=== PATIENT | female | born 1960 | race Caucasian/White ===

== ENCOUNTER 2019-09-13 16:25 | Outpatient (RCR) | payer OTHER, SELFPAY ==
[2019-09-13 17:35] LABS: Basophils Percent Auto 0.4 % (0.2-1.2); Eosinophils Absolute Auto 0.1 K/mm3 (0-0.3); Eosinophils Percent Auto 1.5 % (0-4.4); Hematocrit 42.4 % (37.0-47.0); Hemoglobin 13.5 g/dL (12.0-15.0); Immature Granulocyte Absolute 0.03 K/mm3 (0.00-0.031); Immature Granulocyte Percent A 0.3 % (0-0.5); Lymphocytes Absolute Auto 3.41 K/mm3 (0.9-3.2); Lymphocytes Percent Auto 35.3 % (18.3-44.2); Mean Corpuscular HGB Conc 31.8 g/dl (32-36); Mean Corpuscular Hemoglobin 30.9 pg (26-34); Mean Platelet Volume 9.6 fl (7.4-10.4); Monocytes Absolute Auto 0.6 K/mm3 (0.1-0.6); Monocytes Percent Auto 5.8 % (2.6-8.5); Neutrophils Absolute Auto 5.5 K/mm3 (1.3-6.7); Neutrophils Percent Auto 56.7 % (45.5-73.1); Platelet Count Result 324 k/mm3 (150-375); Red Blood Count 4.37 M/mm3 (4.2-5.4); Red Cell Distribution Width 13.3 % (11.5-14.5); White Blood Count 9.7 K/mm3 (4.5-10.0)
== END 2019-12-12 23:59 | disposition home or self-care (01) ==
LOC: ANHLAB 16:25
PROVIDERS: PCP Family Medicine
DX: K50.919 Crohn's disease, unspecified, with unspecified complications (principal); Z79.899 Other long term (current) drug therapy
CPT/HCPCS: 36415; 85025

== ENCOUNTER 2019-12-22 07:15 | Outpatient (RCR) | payer OTHER, SELFPAY ==
[2019-12-22 07:59] LABS: Basophils Absolute Auto 0.1 K/mm3 (0.0-0.1); Basophils Percent Auto 0.6 % (0.2-1.2); Eosinophils Absolute Auto 0.2 K/mm3 (0-0.3); Eosinophils Percent Auto 1.9 % (0-4.4); Hematocrit 41.5 % (37.0-47.0); Hemoglobin 13.3 g/dL (12.0-15.0); Immature Granulocyte Absolute 0.04 K/mm3 (0.00-0.031); Immature Granulocyte Percent A 0.5 % (0-0.5); Lymphocytes Percent Auto 29.8 % (18.3-44.2); Mean Corpuscular Hemoglobin 30.9 pg (26-34); Mean Corpuscular Volume 96.5 fl (80-100); Mean Platelet Volume 9.5 fl (7.4-10.4); Monocytes Absolute Auto 0.5 K/mm3 (0.1-0.6); Neutrophils Absolute Auto 5.4 K/mm3 (1.3-6.7); Neutrophils Percent Auto 61.2 % (45.5-73.1); Platelet Count Result 315 k/mm3 (150-375); Red Cell Distribution Width 12.9 % (11.5-14.5); White Blood Count 8.7 K/mm3 (4.5-10.0)
[2019-12-22 08:16] LABS: Blood Urea Nitrogen 11 mg/dL (7-17); Carbon Dioxide 26 mmol/L (22-30); Chloride 107 mmol/L (98-107); Cholesterol 167 mg/dL (0-200); Estimated Glomerular Filt Rate > 60; Glucose 93 mg/dL (65-105); HDL Direct 49 mg/dL; Potassium 4.5 mmol/L (3.4-5.0); Sodium 139 mmol/L (137-145); Triglycerides 83 mg/dL (<150)
[2019-12-22 08:17] LABS: Alanine Aminotransferase 18 U/L (4-35); Albumin Level 4.2 g/dL (3.5-5.1); Alkaline Phosphatase 70 U/L (38-126); Aspartate Amino Transferase 33 U/L (14-36); Bilirubin,Total 0.5 mg/dL (0.2-1.3)
[2019-12-22 08:27] LABS: LDL Cholesterol Direct 93 mg/dL
[2019-12-22 08:46] LABS: Thyroid Stimulating Hormone 0.981 uIU/mL (0.465-4.680)
== END 2020-03-21 23:59 | disposition home or self-care (01) ==
LOC: ANHLAB 07:15
PROVIDERS: Nurse Practitioner Family; PCP Family Medicine
DX: K50.919 Crohn's disease, unspecified, with unspecified complications (principal); Z79.899 Other long term (current) drug therapy; Z13.220 Encounter for screening for lipoid disorders; Z13.29 Encounter for screening for other suspected endocrine disorder
CPT/HCPCS: 36415; 80048; 80061; 80076; 84443; 85025

== ENCOUNTER 2020-03-24 14:30 | Outpatient (CLI) | payer OTHER, SELFPAY ==
[2020-03-24 15:15] LABS: Basophils Percent Auto 0.4 % (0.2-1.2); Eosinophils Absolute Auto 0.2 K/mm3 (0-0.3); Eosinophils Percent Auto 2.3 % (0-4.4); Hematocrit 39.2 % (37.0-47.0); Immature Granulocyte Absolute 0.03 K/mm3 (0.00-0.031); Immature Granulocyte Percent A 0.3 % (0-0.5); Lymphocytes Absolute Auto 2.96 K/mm3 (0.9-3.2); Lymphocytes Percent Auto 29.3 % (18.3-44.2); Mean Corpuscular HGB Conc 33.2 g/dl (32-36); Mean Corpuscular Hemoglobin 31.6 pg (26-34); Mean Corpuscular Volume 95.4 fl (80-100); Mean Platelet Volume 9.7 fl (7.4-10.4); Monocytes Absolute Auto 0.5 K/mm3 (0.1-0.6); Monocytes Percent Auto 5.1 % (2.6-8.5); Neutrophils Absolute Auto 6.3 K/mm3 (1.3-6.7); Neutrophils Percent Auto 62.6 % (45.5-73.1); Platelet Count Result 296 k/mm3 (150-375); Red Blood Count 4.11 M/mm3 (4.2-5.4); Red Cell Distribution Width 12.4 % (11.5-14.5); White Blood Count 10.1 K/mm3 (4.5-10.0)
[2020-03-24 15:27] LABS: Anion Gap 10.8 mmol/L (7-16); Blood Urea Nitrogen 14 mg/dL (7-17); Calcium 8.6 mg/dL (8.4-10.2); Carbon Dioxide 24 mmol/L (22-30); Chloride 107 mmol/L (98-107); Estimated Glomerular Filt Rate > 60; Glucose 114 mg/dL (65-105); Potassium 3.8 mmol/L (3.4-5.0); Sodium 138 mmol/L (137-145)
== END 2020-03-24 14:31 | disposition home or self-care (01) ==
PROVIDERS: PCP Family Medicine; Visit Provider Nurse Practitioner Family
DX: R10.2 Pelvic and perineal pain (principal); N28.9 Disorder of kidney and ureter, unspecified
CPT/HCPCS: 36415; 80048; 85025

== ENCOUNTER 2020-03-24 14:33 | Outpatient (RCR) | payer OTHER, SELFPAY ==
[2020-03-24 15:26] LABS: Alanine Aminotransferase 17 U/L (4-35); Albumin Level 3.9 g/dL (3.5-5.1); Alkaline Phosphatase 73 U/L (38-126); Aspartate Amino Transferase 29 U/L (14-36); Bilirubin,Total 0.2 mg/dL (0.2-1.3)
== END 2020-06-22 23:59 | disposition home or self-care (01) ==
LOC: ANHLAB 14:33
PROVIDERS: PCP Family Medicine
DX: K50.919 Crohn's disease, unspecified, with unspecified complications (principal); Z79.899 Other long term (current) drug therapy
CPT/HCPCS: 36415; 80076

== ENCOUNTER 2020-05-31 14:40 | Outpatient (CLI) | payer OTHER, SELFPAY | END 2020-05-31 14:41 | disposition home or self-care (01) | LOC: ANHAUDIO 14:42 | PROVIDERS: PCP Family Medicine | DX: H65.23 Chronic serous otitis media, bilateral (principal) | CPT/HCPCS: 92552; 92556; 92567 ==

== ENCOUNTER 2020-06-17 07:42 | Outpatient (RCR) | payer OTHER, SELFPAY ==
[2020-06-17 08:26] LABS: Alanine Aminotransferase 35 U/L (4-35); Albumin Level 4.3 g/dL (3.5-5.1); Alkaline Phosphatase 74 U/L (38-126); Aspartate Amino Transferase 42 U/L (14-36); Bilirubin,Total 0.3 mg/dL (0.2-1.3)
[2020-06-17 08:35] LABS: Basophils Absolute Auto 0.1 K/mm3 (0.0-0.1); Basophils Percent Auto 0.7 % (0.2-1.2); Eosinophils Absolute Auto 0.2 K/mm3 (0-0.3); Eosinophils Percent Auto 2.3 % (0-4.4); Hematocrit 42.7 % (37.0-47.0); Hemoglobin 13.8 g/dL (12.0-15.0); Immature Granulocyte Absolute 0.04 K/mm3 (0.00-0.031); Immature Granulocyte Percent A 0.5 % (0-0.5); Lymphocytes Absolute Auto 2.92 K/mm3 (0.9-3.2); Lymphocytes Percent Auto 33.4 % (18.3-44.2); Mean Corpuscular HGB Conc 32.3 g/dl (32-36); Mean Corpuscular Hemoglobin 31.3 pg (26-34); Mean Corpuscular Volume 96.8 fl (80-100); Mean Platelet Volume 9.6 fl (7.4-10.4); Monocytes Absolute Auto 0.6 K/mm3 (0.1-0.6); Monocytes Percent Auto 6.4 % (2.6-8.5); Neutrophils Percent Auto 56.7 % (45.5-73.1); Platelet Count Result 330 k/mm3 (150-375); Red Blood Count 4.41 M/mm3 (4.2-5.4); Red Cell Distribution Width 12.6 % (11.5-14.5); White Blood Count 8.8 K/mm3 (4.5-10.0)
== END 2020-09-15 23:59 | disposition home or self-care (01) ==
LOC: ANHLAB 07:42
PROVIDERS: PCP Family Medicine
DX: K50.919 Crohn's disease, unspecified, with unspecified complications (principal); Z79.899 Other long term (current) drug therapy
CPT/HCPCS: 36415; 80076; 85025

== ENCOUNTER 2020-11-03 09:49 | Outpatient (CLI) | payer OTHER, SELFPAY | END 2020-11-03 09:50 | disposition home or self-care (01) | LOC: ANHCOVIDVC 09:49 | PROVIDERS: PCP Family Medicine | DX: Z23 Encounter for immunization (principal) | CPT/HCPCS: 0001A; 91300 ==

== ENCOUNTER 2020-11-24 09:54 | Outpatient (CLI) | payer OTHER, SELFPAY | END 2020-11-24 09:55 | disposition home or self-care (01) | LOC: ANHCOVIDVC 09:54 | PROVIDERS: PCP Family Medicine | DX: Z23 Encounter for immunization (principal) | CPT/HCPCS: 0002A; 91300 ==

== ENCOUNTER 2020-12-15 09:47 | Outpatient (RCR) | payer OTHER, SELFPAY ==
[2020-09-16 11:05] LABS: Basophils Absolute Auto 0.1 K/mm3 (0.0-0.1); Basophils Percent Auto 0.5 % (0.2-1.2); Eosinophils Absolute Auto 0.2 K/mm3 (0-0.3); Eosinophils Percent Auto 1.5 % (0-4.4); Hematocrit 40.7 % (37.0-47.0); Hemoglobin 13.2 g/dL (12.0-15.0); Immature Granulocyte Absolute 0.05 K/mm3 (0.00-0.031); Immature Granulocyte Percent A 0.4 % (0-0.5); Lymphocytes Absolute Auto 2.58 K/mm3 (0.9-3.2); Lymphocytes Percent Auto 22.3 % (18.3-44.2); Mean Corpuscular HGB Conc 32.4 g/dl (32-36); Mean Corpuscular Hemoglobin 30.6 pg (26-34); Mean Corpuscular Volume 94.4 fl (80-100); Mean Platelet Volume 9.2 fl (7.4-10.4); Monocytes Absolute Auto 0.6 K/mm3 (0.1-0.6); Monocytes Percent Auto 4.8 % (2.6-8.5); Neutrophils Absolute Auto 8.2 K/mm3 (1.3-6.7); Neutrophils Percent Auto 70.5 % (45.5-73.1); Platelet Count Result 330 k/mm3 (150-375); Red Blood Count 4.31 M/mm3 (4.2-5.4); Red Cell Distribution Width 12.5 % (11.5-14.5); White Blood Count 11.6 K/mm3 (4.5-10.0)
[2020-12-15 10:28] LABS: Basophils Absolute Auto 0.1 K/mm3 (0.0-0.1); Basophils Percent Auto 0.5 % (0.2-1.2); Eosinophils Absolute Auto 0.1 K/mm3 (0-0.3); Eosinophils Percent Auto 1.3 % (0-4.4); Hematocrit 41.6 % (37.0-47.0); Hemoglobin 13.9 g/dL (12.0-15.0); Immature Granulocyte Absolute 0.05 K/mm3 (0.00-0.031); Immature Granulocyte Percent A 0.5 % (0-0.5); Lymphocytes Absolute Auto 2.47 K/mm3 (0.9-3.2); Lymphocytes Percent Auto 23.7 % (18.3-44.2); Mean Corpuscular HGB Conc 33.4 g/dl (32-36); Mean Corpuscular Hemoglobin 31.6 pg (26-34); Mean Corpuscular Volume 94.5 fl (80-100); Mean Platelet Volume 9.3 fl (7.4-10.4); Monocytes Absolute Auto 0.6 K/mm3 (0.1-0.6); Monocytes Percent Auto 5.3 % (2.6-8.5); Neutrophils Absolute Auto 7.2 K/mm3 (1.3-6.7); Neutrophils Percent Auto 68.7 % (45.5-73.1); Platelet Count Result 306 k/mm3 (150-375); Red Cell Distribution Width 12.4 % (11.5-14.5); White Blood Count 10.4 K/mm3 (4.5-10.0)
== END 2020-12-15 23:59 | disposition home or self-care (01) ==
LOC: ANHLAB 09:47
PROVIDERS: PCP Family Medicine
DX: K50.919 Crohn's disease, unspecified, with unspecified complications (principal); Z79.899 Other long term (current) drug therapy
CPT/HCPCS: 36415; 85025

== ENCOUNTER 2020-12-25 08:21 | Outpatient (CLI) | payer OTHER, SELFPAY ==
[2020-12-28 00:11] LABS: NIL 0.06 IU/mL; Quantiferon TB Plus, 1T NEGATIVE (NEGATIVE); TB2-NIL 0.02 IU/mL
== END 2020-12-25 08:22 | disposition home or self-care (01) ==
PROVIDERS: PCP Family Medicine
DX: K50.919 Crohn's disease, unspecified, with unspecified complications (principal)
CPT/HCPCS: 36415; 86480

== ENCOUNTER 2021-01-26 06:58 | Outpatient (CLI) | payer OTHER, SELFPAY ==
[2021-01-26 07:34] LABS: Hematocrit 39.6 % (37.0-47.0); Mean Corpuscular HGB Conc 32.8 g/dl (32-36); Mean Corpuscular Hemoglobin 31.1 pg (26-34); Mean Corpuscular Volume 94.7 fl (80-100); Mean Platelet Volume 9.3 fl (7.4-10.4); Platelet Count Result 306 k/mm3 (150-375); Red Blood Count 4.18 M/mm3 (4.2-5.4); Red Cell Distribution Width 12.8 % (11.5-14.5); White Blood Count 9.6 K/mm3 (4.5-10.0)
[2021-01-26 07:45] LABS: Cholesterol 177 mg/dL (0-200); HDL Direct 52 mg/dL; Triglycerides 77 mg/dL (<150)
[2021-01-26 07:56] LABS: LDL Cholesterol Direct 89 mg/dL
[2021-01-26 08:15] LABS: Thyroid Stimulating Hormone 0.868 uIU/mL (0.465-4.680)
[2021-01-26 08:47] LABS: Iron 105 ug/dL (37-170); Percent Iron Saturation 32 % (20-50)
[2021-01-26 09:26] LABS: Vitamin D 25 Hydroxy 37.6 ng/mL
== END 2021-01-26 06:59 | disposition home or self-care (01) ==
PROVIDERS: PCP Family Medicine; Visit Provider Nurse Practitioner Family
DX: Z13.220 Encounter for screening for lipoid disorders (principal); R53.83 Other fatigue; F32.9 Major depressive disorder, single episode, unspecified; E55.9 Vitamin D deficiency, unspecified
CPT/HCPCS: 36415; 80061; 82306; 83540; 83550; 84443; 85027

== ENCOUNTER 2021-03-10 07:24 | Outpatient (RCR) | payer OTHER, SELFPAY ==
[2021-03-10 08:07] LABS: Basophils Absolute Auto 0.1 K/mm3 (0.0-0.1); Basophils Percent Auto 0.5 % (0.2-1.2); Eosinophils Absolute Auto 0.2 K/mm3 (0-0.3); Eosinophils Percent Auto 2.2 % (0-4.4); Hematocrit 40.5 % (37.0-47.0); Hemoglobin 13.1 g/dL (12.0-15.0); Immature Granulocyte Absolute 0.04 K/mm3 (0.00-0.031); Immature Granulocyte Percent A 0.4 % (0-0.5); Lymphocytes Absolute Auto 2.28 K/mm3 (0.9-3.2); Lymphocytes Percent Auto 24.1 % (18.3-44.2); Mean Corpuscular HGB Conc 32.3 g/dl (32-36); Mean Corpuscular Hemoglobin 30.8 pg (26-34); Mean Corpuscular Volume 95.3 fl (80-100); Mean Platelet Volume 9.3 fl (7.4-10.4); Monocytes Absolute Auto 0.5 K/mm3 (0.1-0.6); Monocytes Percent Auto 5.3 % (2.6-8.5); Neutrophils Absolute Auto 6.4 K/mm3 (1.3-6.7); Neutrophils Percent Auto 67.5 % (45.5-73.1); Platelet Count Result 301 k/mm3 (150-375); Red Blood Count 4.25 M/mm3 (4.2-5.4); Red Cell Distribution Width 12.5 % (11.5-14.5); White Blood Count 9.5 K/mm3 (4.5-10.0)
[2021-03-10 08:56] LABS: Alanine Aminotransferase 24 U/L (4-35); Albumin Level 4.2 g/dL (3.5-5.1); Alkaline Phosphatase 59 U/L (38-126); Aspartate Amino Transferase 54 U/L (14-36); Bilirubin,Total 0.6 mg/dL (0.2-1.3)
== END 2021-06-08 23:59 | disposition home or self-care (01) ==
LOC: ANHLAB 07:24
PROVIDERS: PCP Family Medicine
DX: Z51.81 Encounter for therapeutic drug level monitoring (principal); K50.019 Crohn's disease of small intestine with unspecified complications; Z79.899 Other long term (current) drug therapy
CPT/HCPCS: 36415; 80076; 85025

== ENCOUNTER 2021-03-10 07:32 | Outpatient (CLI) | payer OTHER, SELFPAY ==
[2021-03-10 08:49] LABS: Thyroid Stimulating Hormone 0.809 uIU/mL (0.465-4.680)
== END 2021-03-10 07:33 | disposition home or self-care (01) ==
PROVIDERS: PCP Family Medicine
DX: K50.019 Crohn's disease of small intestine with unspecified complications (principal); Z79.899 Other long term (current) drug therapy
CPT/HCPCS: 36415; 82607; 84443; 86480

== ENCOUNTER 2021-06-18 17:08 | Outpatient (RCR) | payer OTHER, SELFPAY ==
[2021-06-18 17:28] LABS: Basophils Percent Auto 0.3 % (0.2-1.2); Eosinophils Absolute Auto 0.2 K/mm3 (0-0.3); Eosinophils Percent Auto 1.5 % (0-4.4); Hematocrit 36.1 % (37.0-47.0); Hemoglobin 11.9 g/dL (12.0-15.0); Immature Granulocyte Absolute 0.03 K/mm3 (0.00-0.031); Immature Granulocyte Percent A 0.3 % (0-0.5); Lymphocytes Absolute Auto 3.66 K/mm3 (0.9-3.2); Lymphocytes Percent Auto 37.2 % (18.3-44.2); Mean Corpuscular Hemoglobin 31.2 pg (26-34); Mean Corpuscular Volume 94.8 fl (80-100); Mean Platelet Volume 9.2 fl (7.4-10.4); Monocytes Absolute Auto 0.5 K/mm3 (0.1-0.6); Monocytes Percent Auto 5.2 % (2.6-8.5); Neutrophils Absolute Auto 5.5 K/mm3 (1.3-6.7); Neutrophils Percent Auto 55.5 % (45.5-73.1); Platelet Count Result 270 k/mm3 (150-375); Red Blood Count 3.81 M/mm3 (4.2-5.4); Red Cell Distribution Width 12.7 % (11.5-14.5); White Blood Count 9.8 K/mm3 (4.5-10.0)
[2021-06-18 17:41] LABS: Alanine Aminotransferase 17 U/L (4-35); Albumin Level 4.2 g/dL (3.5-5.1); Alkaline Phosphatase 55 U/L (38-126); Aspartate Amino Transferase 33 U/L (14-36); Bilirubin,Total 0.5 mg/dL (0.2-1.3)
== END 2021-09-16 23:59 | disposition home or self-care (01) ==
LOC: ANHLAB 17:08
PROVIDERS: PCP Family Medicine
DX: Z51.81 Encounter for therapeutic drug level monitoring (principal); K50.019 Crohn's disease of small intestine with unspecified complications; Z79.899 Other long term (current) drug therapy
CPT/HCPCS: 36415; 80076; 85025

== ENCOUNTER 2022-02-11 16:29 | Outpatient (RCR) | payer OTHER, SELFPAY ==
[2021-11-14 17:21] LABS: Basophils Percent Auto 0.4 % (0.2-1.2); Eosinophils Absolute Auto 0.1 K/mm3 (0-0.3); Eosinophils Percent Auto 1.4 % (0-4.4); Hematocrit 38.1 % (37.0-47.0); Hemoglobin 12.3 g/dL (12.0-15.0); Immature Granulocyte Absolute 0.03 K/mm3 (0.00-0.031); Immature Granulocyte Percent A 0.3 % (0-0.5); Lymphocytes Absolute Auto 4.07 K/mm3 (0.9-3.2); Lymphocytes Percent Auto 41.3 % (18.3-44.2); Mean Corpuscular HGB Conc 32.3 g/dl (32-36); Mean Corpuscular Hemoglobin 31.6 pg (26-34); Mean Corpuscular Volume 97.9 fl (80-100); Mean Platelet Volume 9.3 fl (7.4-10.4); Monocytes Absolute Auto 0.6 K/mm3 (0.1-0.6); Monocytes Percent Auto 6.3 % (2.6-8.5); Neutrophils Percent Auto 50.3 % (45.5-73.1); Platelet Count Result 275 k/mm3 (150-375); Red Blood Count 3.89 M/mm3 (4.2-5.4); Red Cell Distribution Width 12.8 % (11.5-14.5); White Blood Count 9.9 K/mm3 (4.5-10.0)
[2021-11-14 17:31] LABS: Alanine Aminotransferase 15 U/L (4-35); Albumin Level 4.1 g/dL (3.5-5.1); Alkaline Phosphatase 67 U/L (38-126); Aspartate Amino Transferase 31 U/L (14-36); Bilirubin,Total 0.3 mg/dL (0.2-1.3)
[2022-02-11 16:48] LABS: Basophils Absolute Auto 0.1 K/mm3 (0.0-0.1); Basophils Percent Auto 0.4 % (0.2-1.2); Eosinophils Absolute Auto 0.2 K/mm3 (0-0.3); Eosinophils Percent Auto 1.3 % (0-4.4); Hemoglobin 12.8 g/dL (12.0-15.0); Immature Granulocyte Absolute 0.05 K/mm3 (0.00-0.031); Immature Granulocyte Percent A 0.4 % (0-0.5); Lymphocytes Absolute Auto 4.18 K/mm3 (0.9-3.2); Lymphocytes Percent Auto 37.4 % (18.3-44.2); Mean Corpuscular Hemoglobin 30.9 pg (26-34); Mean Corpuscular Volume 96.6 fl (80-100); Mean Platelet Volume 9.1 fl (7.4-10.4); Monocytes Absolute Auto 0.6 K/mm3 (0.1-0.6); Monocytes Percent Auto 5.2 % (2.6-8.5); Neutrophils Absolute Auto 6.2 K/mm3 (1.3-6.7); Neutrophils Percent Auto 55.3 % (45.5-73.1); Platelet Count Result 296 k/mm3 (150-375); Red Blood Count 4.14 M/mm3 (4.2-5.4); Red Cell Distribution Width 13.2 % (11.5-14.5); White Blood Count 11.2 K/mm3 (4.5-10.0)
[2022-02-11 17:01] LABS: Alanine Aminotransferase 16 U/L (6-35); Albumin Level 4.3 g/dL (3.5-5.1); Alkaline Phosphatase 70 U/L (38-126); Aspartate Amino Transferase 28 U/L (14-36); Bilirubin,Total 0.2 mg/dL (0.2-1.3)
== END 2022-02-12 23:59 | disposition home or self-care (01) ==
LOC: ANHLAB 16:29
PROVIDERS: PCP Family Medicine
DX: K50.019 Crohn's disease of small intestine with unspecified complications (principal); Z79.899 Other long term (current) drug therapy
CPT/HCPCS: 36415; 80076; 82607; 85025

== ENCOUNTER 2022-05-25 09:01 | Outpatient (RCR) | payer OTHER, SELFPAY ==
[2022-05-25 09:33] LABS: Basophils Absolute Auto 0.1 K/mm3 (0.0-0.1); Basophils Percent Auto 0.4 % (0.2-1.2); Eosinophils Absolute Auto 0.1 K/mm3 (0-0.3); Hematocrit 44.5 % (37.0-47.0); Hemoglobin 13.6 g/dL (12.0-15.0); Immature Granulocyte Absolute 0.07 K/mm3 (0.00-0.031); Immature Granulocyte Percent A 0.6 % (0-0.5); Lymphocytes Absolute Auto 2.88 K/mm3 (0.9-3.2); Lymphocytes Percent Auto 23.3 % (18.3-44.2); Mean Corpuscular HGB Conc 30.6 g/dl (32-36); Mean Corpuscular Hemoglobin 32.2 pg (26-34); Mean Corpuscular Volume 105.5 fl (80-100); Mean Platelet Volume 9.2 fl (7.4-10.4); Monocytes Absolute Auto 0.6 K/mm3 (0.1-0.6); Monocytes Percent Auto 4.6 % (2.6-8.5); Neutrophils Absolute Auto 8.7 K/mm3 (1.3-6.7); Neutrophils Percent Auto 70.1 % (45.5-73.1); Platelet Count Result 281 k/mm3 (150-375); Red Blood Count 4.22 M/mm3 (4.2-5.4); White Blood Count 12.4 K/mm3 (4.5-10.0)
[2022-05-25 09:54] LABS: Alanine Aminotransferase 20 U/L (6-35); Albumin Level 3.9 g/dL (3.5-5.1); Alkaline Phosphatase 61 U/L (38-126); Aspartate Amino Transferase 33 U/L (14-36); Bilirubin,Total 0.6 mg/dL (0.2-1.3)
== END 2022-08-23 23:59 | disposition home or self-care (01) ==
LOC: ANHLAB 09:01
PROVIDERS: PCP Family Medicine
DX: Z51.81 Encounter for therapeutic drug level monitoring (principal); K50.019 Crohn's disease of small intestine with unspecified complications; Z79.899 Other long term (current) drug therapy
CPT/HCPCS: 36415; 80076; 85025

== ENCOUNTER 2022-06-03 02:39 | Emergency (ER) | payer OTHER, SELFPAY ==
[2022-06-03 02:43] VITALS: BP 131/98; PULSE 82; RESP 16; TEMP 36.2; O2SAT 100
[2022-06-03 03:28] LABS: Basophils Percent Auto 0.2 % (0.2-1.2); Eosinophils Absolute Auto 0.1 K/mm3 (0-0.3); Eosinophils Percent Auto 0.4 % (0-4.4); Hematocrit 42.8 % (37.0-47.0); Hemoglobin 14.4 g/dL (12.0-15.0); Immature Granulocyte Absolute 0.09 K/mm3 (0.00-0.031); Immature Granulocyte Percent A 0.5 % (0-0.5); Lymphocytes Absolute Auto 3.06 K/mm3 (0.9-3.2); Lymphocytes Percent Auto 18.7 % (18.3-44.2); Mean Corpuscular HGB Conc 33.6 g/dl (32-36); Mean Corpuscular Hemoglobin 31.5 pg (26-34); Mean Corpuscular Volume 93.7 fl (80-100); Mean Platelet Volume 9.5 fl (7.4-10.4); Monocytes Absolute Auto 0.9 K/mm3 (0.1-0.6); Monocytes Percent Auto 5.5 % (2.6-8.5); Neutrophils Absolute Auto 12.2 K/mm3 (1.3-6.7); Neutrophils Percent Auto 74.7 % (45.5-73.1); Platelet Count Result 350 k/mm3 (150-375); Red Blood Count 4.57 M/mm3 (4.2-5.4); White Blood Count 16.4 K/mm3 (4.5-10.0)
[2022-06-03 03:30] LABS: Appearance Urine Clear (Clear); Bilirubin Urine 1+ (Negative); Blood Urine Trace-intact (Negative); Color Urine Yellow (Yellow); Glucose Urine UA Negative (Negative); Ketones Urine 1+ mg/dL (Negative); Leukocyte Esterase Ur Trace LEU/UL (Negative); Nitrate Urine Negative (Negative); Protein Urine Trace mg/dL (Negative); Specific Grav Ur 1.025 (1.001-1.035); Urobilinogen Urine 0.2 mg/dL (<2.0)
[2022-06-03 03:31] LABS: Add Urine Microscopic? YES
[2022-06-03 03:33] LABS: Squamous Epithelial Cell Urine Rare /hpf (Few)
--- NOTE | 2022-06-03 03:33 | ECG_ITS ---
Measurements Intervals [place] Rate: 71 P: 81 SD: 141 QRS: 36 QRSD: 97 T: 62 QT: 460 QTc: 502 Interpretive Statements SINUS RHYTHM BASELINE ARTIFACT CANNOT RULE OUT SEPTAL MYOCARDIAL INFARCTION , PROBABLY OLD BORDERLINE ECG NO PREVIOUS ECG AVAILABLE FOR COMPARISON Electronically Signed On 06-03-2022 14:46:16 CDT by Bebeto Sanchez M.D.
--- NOTE | 2022-06-03 03:36 | ED.GENADULT ---
HPI - General Adult General Chief complaint: Abdominal Pain Stated complaint: N/V, abd pain Time Seen by Provider: 06/03/22 03:06 History of Present Illness HPI narrative: This is a 62-year-old female presenting ED with a chief complaint of nausea/vomiting/abdominal pain. The patient says that the pain started at 9:00 p.m. this evening. The pain occurred after she had dinner. Patient also had a THC gummy at 6:00 p.m.. Patient had multiple episodes of nausea and vomiting and is unable to keep down fluids.. She is now complaining of achy diffuse abdominal pain that is nonradiating, 10/10 in intensity. Patient says that the pain comes and goes. She has never experienced pain like this before. There are no exacerbating or relieving factors. Patient denies fever, chills, chest pain, difficulty breathing. She had a bowel movement in the last several hours that was normal with no blood and non diarrheal. Patient has a history of Crohn's but has not required surgery due to her flares. patient states is not feel like her Crohn's pain. Related Data Home Medications Medication Instructions Recorded Confirmed folic acid 0.8 mg capsule 0.8 mg PO DAILY 08/27/19 09/28/21 omeprazole 20 mg capsule,delayed 20 mg PO DAILY 08/27/19 09/28/21 release raloxifene 60 mg tablet (Evista) 60 mg PO DAILY 08/27/19 09/28/21 ustekinumab 90 mg/mL subcutaneous 90 mg subcut ONCE 08/27/19 09/28/21 syringe (Stelara) multivitamin 1 tablet PO DAILY 01/15/21 09/28/21 vitamin B complex 1 tablet PO DAILY 01/15/21 09/28/21 Allergies Allergy/AdvReac Type Severity Reaction Status Date / Time iodine Allergy Severe HIVES Verified 06/03/22 02:53 adhesive tape Allergy Unknown PLASTIC Verified 06/03/22 02:53 TAPE= BLISTERS codeine Allergy Unknown Unknown Verified 06/03/22 02:53 Review of Systems Review of Systems: CONSTITUTIONAL: Denies night sweats. EYES: No eye pain ENT: Denies rhinorrhea CARDIOVASCULAR: Denies palpitations RESPIRATORY: Denies hemoptysis GASTROINTESTINAL: Denies hematemesis GENITOURINARY: Denies hematuria. SKIN: Denies rash MUSCULOSKELETAL: Denies myalgia. NEUROLOGIC: Denies weakness. PSYCHIATRIC: Denies delusions PMFSH Past Medical History Medical History BMI 28.0-28.9,adult BMI 29.0-29.9,adult Crohn's disease Family History Family History Mother Family history of malignant neoplasm of breast in first degree relative Breast cancer Father Heart disease Aortobifemoral bypass graft thrombosis Sibling Lymphoma Kidney tumor Other Cerebrovascular accident Family history of coronary artery disease Hypertension Social History Social History Smoking status: Current every day smoker Tobacco type: cigarettes Second hand tobacco smoke exposure: Yes Alcohol intake: current Substance use: current Substance use type: marijuana Other substance usage details: gummies 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 EYES: PERRLA/EOMI, NOSE: Normal no drainage NECK: Supple, Trachea midline RESPIRATORY: CTAB, No increased work of breathing. CARDIOVASCULAR: S1S2 appreciated, no peripheral edema ABDOMINAL: abdomen is soft, with diffuse tenderness but no guarding or rebound. Bowel sounds are present. MUSCULOSKELETAL: No obvious deformities NEURO: Alert. Moving 4/4 extremities SKIN:: Warm, dry. Normal color PSYCHIATRIC: Normal affect Course Vital Signs Vital signs: Vital Signs Temperature 97.2 F L 06/03/22 02:43 Pulse Rate 82 06/03/22 02:43 Respiratory Rate 16 06/03/22 02:43 Blood Pressure 131/98 H
[2022-06-03] MEDS: SODIUM CHLORIDE 0.9% IV 2,000 ML 999 ML IV CONT (03:40)
[2022-06-03 03:43] LABS: Alanine Aminotransferase 23 U/L (6-35); Albumin Level 4.8 g/dL (3.5-5.1); Alkaline Phosphatase 87 U/L (38-126); Anion Gap 15 mmol/L (8-16); Aspartate Amino Transferase 37 U/L (14-36); Bilirubin,Total 0.7 mg/dL (0.2-1.3); Blood Urea Nitrogen 15 mg/dL (7-17); Calcium 9.6 mg/dL (8.4-10.2); Carbon Dioxide 19 mmol/L (22-30); Chloride 106 mmol/L (98-107); Estimated CRCL calculation 80 ml/min; Estimated Glomerular Filt Rate > 60; Glucose 128 mg/dL (65-110); Lipase 75 U/L (23-300); Potassium 3.7 mmol/L (3.4-5.0); Sodium 140 mmol/L (137-145)
[2022-06-03] MEDS: HALOPERIDOL LACTATE 5 MG/ML VIAL IV PUSH (03:43)
[2022-06-03] MEDS: ONDANSETRON INJ 4 MG/2 ML VIAL IV PUSH (03:43)
[2022-06-03] MEDS: FAMOTIDINE 20 MG/2 ML VIAL IV PUSH (03:43)
[2022-06-03 03:45] LABS: Amphetamine Screen Urine Negative (Negative); Barbiturate Screen Urine Negative (Negative); Benzodiazepines Screen Urine Negative (Negative); Cannabinoid Screen Urine Positive (Negative); Cocaine Screen Urine Negative (Negative); Methadone Screen Urine Negative (Negative); Opiate Screen Urine Negative (Negative); Phencyclidine Screen Urine Negative (Negative)
[2022-06-03 04:31] VITALS: BP 114/65; PULSE 87; RESP 17; O2SAT 99
[2022-06-03 05:15] VITALS: BP 106/58; PULSE 83; RESP 19; O2SAT 99
== END 2022-06-03 05:20 | disposition home or self-care (01) ==
PROVIDERS: Emergency Provider Emergency Medicine; PCP Family Medicine
DX: K50.90 Crohn's disease, unspecified, without complications (principal); F12.90 Cannabis use, unspecified, uncomplicated; F17.210 Nicotine dependence, cigarettes, uncomplicated
CPT/HCPCS: 36415; 80053; 80307; 81001; 83690; 85025; 93005; 96361; 96374; 96375; 99284; J1630; J2405; J7030

== ENCOUNTER 2022-07-24 11:12 | Outpatient (CLI) | payer OTHER, SELFPAY ==
--- NOTE | ~2022-07-24 | XR_ITS ---
XR chest 2V 07/24/2022 11:29 Indication: Cough Procedure: 2 view chest Comparison: 03/20/2016 Findings: Heart size is normal. No focal air space disease, pulmonary edema, pleural effusion or susp ected pneumothorax. There are surgical clips overlying the breasts. Impression: 1: No acute cardiopulmonary disease. Reviewed, dictated and finalized at location B. [employer] Impression: 1: No acute cardiopulmonary disease.
== END 2022-07-24 11:13 | disposition home or self-care (01) ==
LOC: ANHIMG 11:15
PROVIDERS: PCP Family Medicine; Visit Provider Nurse Practitioner Family
DX: R05.9 Cough, unspecified (principal)
CPT/HCPCS: 71046

== ENCOUNTER 2023-02-04 16:47 | Outpatient (RCR) | payer OTHER, SELFPAY ==
[2022-11-14 13:32] LABS: Basophils Absolute Auto 0.1 K/mm3 (0.0-0.1); Basophils Percent Auto 0.4 % (0.2-1.2); Eosinophils Absolute Auto 0.1 K/mm3 (0-0.3); Eosinophils Percent Auto 0.7 % (0-4.4); Hematocrit 39.6 % (37.0-47.0); Hemoglobin 12.8 g/dL (12.0-15.0); Immature Granulocyte Absolute 0.06 K/mm3 (0.00-0.031); Immature Granulocyte Percent A 0.4 % (0-0.5); Lymphocytes Absolute Auto 3.35 K/mm3 (0.9-3.2); Lymphocytes Percent Auto 23.3 % (18.3-44.2); Mean Corpuscular HGB Conc 32.3 g/dl (32-36); Mean Corpuscular Hemoglobin 31.2 pg (26-34); Mean Corpuscular Volume 96.6 fl (80-100); Mean Platelet Volume 9.3 fl (7.4-10.4); Monocytes Absolute Auto 0.6 K/mm3 (0.1-0.6); Monocytes Percent Auto 4.2 % (2.6-8.5); Neutrophils Absolute Auto 10.2 K/mm3 (1.3-6.7); Platelet Count Result 298 k/mm3 (150-375); White Blood Count 14.4 K/mm3 (4.5-10.0)
[2022-11-14 13:43] LABS: Alanine Aminotransferase 19 U/L (6-35); Alkaline Phosphatase 72 U/L (38-126); Aspartate Amino Transferase 31 U/L (14-36); Bilirubin,Total 0.4 mg/dL (0.2-1.3)
[2023-02-04 17:28] LABS: Alanine Aminotransferase 19 U/L (6-35); Albumin Level 4.2 g/dL (3.5-5.1); Alkaline Phosphatase 71 U/L (38-126); Aspartate Amino Transferase 36 U/L (14-36); Bilirubin,Total 0.3 mg/dL (0.2-1.3)
[2023-02-04 17:29] LABS: Basophils Percent Auto 0.4 % (0.2-1.2); Eosinophils Absolute Auto 0.1 K/mm3 (0-0.3); Eosinophils Percent Auto 0.9 % (0-4.4); Hematocrit 40.1 % (37.0-47.0); Hemoglobin 12.9 g/dL (12.0-15.0); Immature Granulocyte Absolute 0.04 K/mm3 (0.00-0.031); Immature Granulocyte Percent A 0.4 % (0-0.5); Lymphocytes Absolute Auto 3.79 K/mm3 (0.9-3.2); Lymphocytes Percent Auto 33.4 % (18.3-44.2); Mean Corpuscular HGB Conc 32.2 g/dl (32-36); Mean Corpuscular Hemoglobin 31.4 pg (26-34); Mean Corpuscular Volume 97.6 fl (80-100); Mean Platelet Volume 9.3 fl (7.4-10.4); Monocytes Absolute Auto 0.7 K/mm3 (0.1-0.6); Monocytes Percent Auto 6.4 % (2.6-8.5); Neutrophils Absolute Auto 6.7 K/mm3 (1.3-6.7); Neutrophils Percent Auto 58.5 % (45.5-73.1); Platelet Count Result 310 k/mm3 (150-375); Red Blood Count 4.11 M/mm3 (4.2-5.4); Red Cell Distribution Width 13.4 % (11.5-14.5); White Blood Count 11.4 K/mm3 (4.5-10.0)
[2023-02-07 11:48] LABS: NIL 0.03 IU/mL; Quantiferon TB Plus, 1T NEGATIVE (NEGATIVE); TB1-NIL 0.03 IU/mL; TB2-NIL 0.03 IU/mL
== END 2023-02-12 23:59 | disposition home or self-care (01) ==
LOC: ANHLAB 16:47
PROVIDERS: PCP Family Medicine
DX: K50.019 Crohn's disease of small intestine with unspecified complications (principal); Z79.899 Other long term (current) drug therapy
CPT/HCPCS: 36415; 80076; 85025; 86480

== ENCOUNTER 2023-05-16 15:51 | Outpatient (RCR) | payer OTHER, SELFPAY ==
[2023-05-16 16:40] LABS: Basophils Percent Auto 0.4 % (0.2-1.2); Eosinophils Absolute Auto 0.1 K/mm3 (0-0.3); Hematocrit 40.9 % (37.0-47.0); Hemoglobin 13.3 g/dL (12.0-15.0); Immature Granulocyte Absolute 0.06 K/mm3 (0.00-0.031); Immature Granulocyte Percent A 0.5 % (0-0.5); Lymphocytes Absolute Auto 3.65 K/mm3 (0.9-3.2); Lymphocytes Percent Auto 33.2 % (18.3-44.2); Mean Corpuscular HGB Conc 32.5 g/dl (32-36); Mean Corpuscular Hemoglobin 31.1 pg (26-34); Mean Corpuscular Volume 95.8 fl (80-100); Mean Platelet Volume 9.5 fl (7.4-10.4); Monocytes Absolute Auto 0.7 K/mm3 (0.1-0.6); Monocytes Percent Auto 6.2 % (2.6-8.5); Neutrophils Absolute Auto 6.5 K/mm3 (1.3-6.7); Neutrophils Percent Auto 58.7 % (45.5-73.1); Platelet Count Result 332 k/mm3 (150-375); Red Blood Count 4.27 M/mm3 (4.2-5.4); Red Cell Distribution Width 13.1 % (11.5-14.5)
[2023-05-16 16:46] LABS: Alanine Aminotransferase 23 U/L (6-35); Albumin Level 4.1 g/dL (3.5-5.1); Alkaline Phosphatase 63 U/L (38-126); Aspartate Amino Transferase 33 U/L (14-36); Bilirubin,Total 0.3 mg/dL (0.2-1.3)
== END 2023-08-14 23:59 | disposition home or self-care (01) ==
LOC: ANHLAB 15:51
PROVIDERS: PCP Family Medicine
DX: K50.919 Crohn's disease, unspecified, with unspecified complications (principal); Z79.899 Other long term (current) drug therapy
CPT/HCPCS: 36415; 80076; 85025

== ENCOUNTER 2023-06-10 09:37 | Outpatient (CLI) | payer OTHER, SELFPAY ==
--- NOTE | 2023-06-20 19:23 | WPDHOMESLEEP ---
Sleep Study - Home Unattended Date of Study: 06/10/23 Ordering Provider: Ronnie Garcia MD Interpreting Provider: Milagro Anne MD Home Sleep Study Type: Watch PAT Height: 1.6 m Weight: 77.111 kg Body Mass Index: 30.1 Neck Circumference (inches): 13.5 [place]: 2 Reason for Sleep Study Fatigue since starting Stelara Sleep History Maritza Valle is a 63-year-old woman with fatigue since starting Stelara. She never awakens from sleep short of breath. She never wakes at night with heartburn, belching or coughing.??She occasionally snores, occasionally snores loudly enough that others complain. She occasionally has trouble sleeping when she has a cold. She never wakes up gasping for breath during the night. She never has breathing problems at night. She never sweats excessively at night. She never notices her heart pounding or beating irregularly during the night. She never falls asleep during the day. She never falls asleep involuntarily, and never falls asleep while driving. She rarely experiences loss of muscle tone with strong emotion. She never feels paralyzed on waking or falling asleep. She never experiences vivid dreams upon waking or falling asleep. She never feels afraid of going to sleep. She rarely has nightmares. She rarely recalls her dreams. She frequently has thoughts racing through her mind. She occasionally feels sad or depressed. She occasionally feels anxiety. She rarely notices parts of her body jerk. She never kicks during the night. She rarely feels crawling or aching feelings in her legs. She never feels leg pain at night. She never has morning jaw pain, and never grinds her teeth at night. She occasionally feels bothered by pain during the day, is never awakened by pain during the night. She occasionally wakes up feeling stiff in the morning, occasionally wakes feeling sore or achy in the morning. She rarely awakens with pain in her neck, spine, or joints. Normal bedtime is between 10:00 p.m. and 11:00 p.m., falling asleep within 30-45 minutes, without waking during the night. She reports getting between 6-8 hours of sleep per night. Her wake time is between 6:00 a.m. to 7:00 a.m. She frequently awakens feeling refreshed. She does not take naps. A short nap 10-15 minutes long may be refreshing. She feels better in the afternoon compared to other times of day. Habits:??Tobacco: 1 pack per day Caffeine: 1 pot of coffee per day. Alcohol: rare Recreational substances: none [facility] Past Medical History Medical History Acid reflux BMI 28.0-28.9,adult BMI 29.0-29.9,adult Crohn's disease Depression Fatigue Family History Family History Mother Family history of malignant neoplasm of breast in first degree relative Breast cancer Father Heart disease Aortobifemoral bypass graft thrombosis Sibling Lymphoma Kidney tumor Other Cerebrovascular accident Family history of coronary artery disease Hypertension Social History Social History Smoking status: Current every day smoker Tobacco type: cigarettes Second hand tobacco smoke exposure: Yes Alcohol intake: current Substance use: current Substance use type: marijuana Other substance usage details: georgettemimila Living arrangements: with family Occupation/Education: occupation 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
[2023-06-20 19:36] VITALS: BMI 30.1
== END 2023-06-11 13:25 | disposition home or self-care (01) ==
LOC: ANHCSM 09:37
PROVIDERS: PCP Family Medicine; Visit Provider Family Medicine
DX: G47.10 Hypersomnia, unspecified (principal); G47.9 Sleep disorder, unspecified
CPT/HCPCS: 95800

== ENCOUNTER 2023-08-15 13:49 | Outpatient (CLI) | payer OTHER, SELFPAY ==
[2023-08-15 14:25] LABS: Basophils Percent Auto 0.2 % (0.2-1.2); Eosinophils Absolute Auto 0.1 K/mm3 (0-0.3); Eosinophils Percent Auto 0.4 % (0-4.4); Hematocrit 41.9 % (37.0-47.0); Hemoglobin 13.5 g/dL (12.0-15.0); Immature Granulocyte Absolute 0.06 K/mm3 (0.00-0.031); Immature Granulocyte Percent A 0.5 % (0-0.5); Lymphocytes Absolute Auto 3.33 K/mm3 (0.9-3.2); Lymphocytes Percent Auto 25.7 % (18.3-44.2); Mean Corpuscular HGB Conc 32.2 g/dl (32-36); Mean Corpuscular Volume 96.1 fl (80-100); Mean Platelet Volume 9.3 fl (7.4-10.4); Monocytes Absolute Auto 0.5 K/mm3 (0.1-0.6); Monocytes Percent Auto 3.6 % (2.6-8.5); Neutrophils Percent Auto 69.6 % (45.5-73.1); Platelet Count Result 320 k/mm3 (150-375); Red Blood Count 4.36 M/mm3 (4.2-5.4); Red Cell Distribution Width 12.6 % (11.5-14.5)
[2023-08-15 14:37] LABS: Alanine Aminotransferase 23 U/L (6-35); Albumin Level 4.2 g/dL (3.5-5.1); Alkaline Phosphatase 76 U/L (38-126); Anion Gap 4 mmol/L (8-16); Aspartate Amino Transferase 43 U/L (14-36); Bilirubin,Total 0.5 mg/dL (0.2-1.3); Blood Urea Nitrogen 12 mg/dL (7-17); CRP < 0.5 mg/dL (<1.0); Calcium 9.2 mg/dL (8.4-10.2); Carbon Dioxide 31 mmol/L (22-30); Chloride 106 mmol/L (98-107); Estimated Glomerular Filt Rate > 60; Glucose 116 mg/dL (65-110); Potassium 3.9 mmol/L (3.4-5.0); Sodium 141 mmol/L (137-145)
[2023-08-15 15:24] LABS: Hepatitis B Surface Antigen Negative (Negative)
[2023-08-15 15:42] LABS: Hepatitis B Surface Anti Res Negative
[2023-08-19 13:10] LABS: Hepatitis B Core Ab Total Nonreactive (Nonreactive)
== END 2023-08-15 13:50 | disposition home or self-care (01) ==
PROVIDERS: PCP Family Medicine
DX: K50.019 Crohn's disease of small intestine with unspecified complications (principal); Z00.00 Encounter for general adult medical examination without abnormal findings; Z79.899 Other long term (current) drug therapy
CPT/HCPCS: 36415; 80053; 82306; 85025; 86140; 86704; 86706; 87340

== ENCOUNTER 2023-09-25 08:30 | Outpatient (CLI) | payer OTHER, SELFPAY ==
[2023-09-25 09:02] LABS: Alanine Aminotransferase 31 U/L (6-35); Albumin Level 4.2 g/dL (3.5-5.1); Alkaline Phosphatase 92 U/L (38-126); Aspartate Amino Transferase 100 U/L (14-36); Bilirubin,Total 0.8 mg/dL (0.2-1.3); Cholesterol 179 mg/dL (0-200); HDL Direct 48 mg/dL; Triglycerides 114 mg/dL (<150)
[2023-09-25 09:15] LABS: LDL Cholesterol Direct 99 mg/dL
[2023-09-25 09:33] LABS: Thyroid Stimulating Hormone 0.897 uIU/mL (0.465-4.680)
== END 2023-09-25 08:31 | disposition home or self-care (01) ==
PROVIDERS: PCP Family Medicine; Visit Provider Nurse Practitioner Family
DX: R74.8 Abnormal levels of other serum enzymes (principal); Z13.29 Encounter for screening for other suspected endocrine disorder; Z13.220 Encounter for screening for lipoid disorders; Z71.6 Tobacco abuse counseling
CPT/HCPCS: 36415; 80061; 80076; 84443

== ENCOUNTER 2023-10-14 10:09 | Outpatient (CLI) | payer OTHER, SELFPAY ==
[2023-10-14 11:50] LABS: Basophils Absolute Auto 0.1 K/mm3 (0.0-0.1); Basophils Percent Auto 0.5 % (0.2-1.2); Eosinophils Absolute Auto 0.1 K/mm3 (0-0.3); Eosinophils Percent Auto 0.5 % (0-4.4); Hematocrit 39.4 % (37.0-47.0); Hemoglobin 12.5 g/dL (12.0-15.0); Immature Granulocyte Absolute 0.05 K/mm3 (0.00-0.031); Immature Granulocyte Percent A 0.5 % (0-0.5); Lymphocytes Absolute Auto 2.26 K/mm3 (0.9-3.2); Lymphocytes Percent Auto 20.4 % (18.3-44.2); Mean Corpuscular HGB Conc 31.7 g/dl (32-36); Mean Corpuscular Hemoglobin 30.6 pg (26-34); Mean Corpuscular Volume 96.6 fl (80-100); Monocytes Absolute Auto 0.7 K/mm3 (0.1-0.6); Monocytes Percent Auto 6.3 % (2.6-8.5); Neutrophils Percent Auto 71.8 % (45.5-73.1); Platelet Count Result 358 k/mm3 (150-375); Red Blood Count 4.08 M/mm3 (4.2-5.4); Red Cell Distribution Width 13.1 % (11.5-14.5); White Blood Count 11.1 K/mm3 (4.5-10.0)
[2023-10-14 12:19] LABS: Alanine Aminotransferase 101 U/L (6-35); Albumin Level 3.6 g/dL (3.5-5.1); Alkaline Phosphatase 115 U/L (38-126); Amylase 109 U/L (30-110); Anion Gap 6 mmol/L (8-16); Aspartate Amino Transferase 271 U/L (14-36); Bilirubin,Total 0.6 mg/dL (0.2-1.3); Blood Urea Nitrogen 8 mg/dL (7-17); Calcium 9.1 mg/dL (8.4-10.2); Carbon Dioxide 24 mmol/L (22-30); Chloride 107 mmol/L (98-107); Estimated Glomerular Filt Rate > 60; Glucose 103 mg/dL (65-110); Lipase 134 U/L (23-300); Potassium 3.7 mmol/L (3.4-5.0); Sodium 137 mmol/L (137-145)
[2023-10-14 13:49] LABS: Hepatitis B Surface Antigen Negative (Negative)
[2023-10-14 14:06] LABS: Hepatitis B Surface Anti Res Negative; Hepatitis C Virus Antibody Negative (Negative)
[2023-10-16 19:36] LABS: Hepatitis B Core Ab Total Nonreactive (Nonreactive)
[2023-10-17 11:18] LABS: Actin Antibody (IgG) 50 U (<20)
== END 2023-10-14 10:10 | disposition home or self-care (01) ==
PROVIDERS: PCP Family Medicine; Visit Provider Nurse Practitioner Family
DX: R74.8 Abnormal levels of other serum enzymes (principal); K50.019 Crohn's disease of small intestine with unspecified complications; R79.89 Other specified abnormal findings of blood chemistry; Z79.899 Other long term (current) drug therapy
CPT/HCPCS: 36415; 80053; 82150; 83690; 85025; 86038; 86364; 86704; 86706; 86803; 87340

== ENCOUNTER 2023-10-21 10:17 | Outpatient (CLI) | payer OTHER, SELFPAY ==
[2023-10-21 11:50] LABS: Hepatitis B Surface Antigen Negative (Negative)
[2023-10-21 11:57] LABS: HAV RESULT Negative (Negative); Hepatitis B Core IgM Result Negative (Negative)
[2023-10-21 12:07] LABS: Hepatitis C Virus Antibody Negative (Negative)
[2023-10-23 12:14] LABS: CMV IgM Antibody <30.00 AU/mL (<30.00)
[2023-10-23 14:30] LABS: GGT 326 U/L (3-65)
== END 2023-10-21 10:18 | disposition home or self-care (01) ==
PROVIDERS: PCP Family Medicine; Visit Provider Nurse Practitioner Family
DX: R74.8 Abnormal levels of other serum enzymes (principal); R53.82 Chronic fatigue, unspecified
CPT/HCPCS: 36415; 80074; 82977; 86364; 86645

== ENCOUNTER 2023-10-21 10:20 | Outpatient (CLI) | payer OTHER, SELFPAY ==
[2023-10-23 12:33] LABS: Actin Antibody (IgG) <20 U (<20)
== END 2023-10-21 10:21 | disposition home or self-care (01) ==
PROVIDERS: PCP Family Medicine
DX: R79.89 Other specified abnormal findings of blood chemistry (principal); Z79.899 Other long term (current) drug therapy
CPT/HCPCS: 36415; 86364

== ENCOUNTER 2023-10-23 07:41 | Outpatient (CLI) | payer OTHER, SELFPAY ==
--- NOTE | ~2023-10-23 | US_ITS ---
EXAMINATION: US abdomen complete DATE: 10/23/2023 08:59 INDICATION: Abnormal liver of the liver. Liver enzymes TECHNIQUE: Multiple grayscale and Doppler ultrasound images of the abdomen were obtained. COMPARISON: 06/03/2017; chest radiograph dated 07/24/2022 FINDINGS: Bowel gas obscures visualization of the pancreas. The visualized portions of the pancreas a re unremarkable. The liver demonstrates diffusely heterogeneous echotexture throughout. There is a 7 cm subcapsular mass of the left hepatic lobe. There is a 3 cm cyst of the right hepatic lobe. No surf alban nodularity. Normal hepatopetal flow in the main portal vein. There are multiple stones in the non distended gallbladder. No gallbladder wall thickening or pericholecystic fluid. The normal common alberto e duct measures 5 mm. There was no sonographic Corbin sign. The visualized portions of the aorta and inferior vena cava are normal. The spleen is normal in appearance and measures 8.6 cm. The right kidney measures 11.3 x 4.3 x 5.3 cm . The left kidney measures 11.6 x 5.3 x 6.2 cm. The kidneys demonstrate normal parenchymal echogenici ty. There is no hydronephrosis. IMPRESSION: 1. Diffusely heterogeneous liver with 7 cm mass of the left hepatic lobe. Given patient's history of breast cancer, findings are concerning for hepatic metastatic disease. Further evaluation by CT or MR I without and with contrast is recommended. Reviewed, dictated and finalized at location L. [employer] STOCK INSPECTOR IMPRESSION: 1. Diffusely heterogeneous liver with 7 cm mass of the left hepatic lobe. Given patient's history of breast cancer, findings are concerning for hepatic metast atic disease. Further evaluation by CT or MRI without and with contrast is jean mmended.
== END 2023-10-23 07:42 | disposition home or self-care (01) ==
LOC: ANHIMG 07:44
PROVIDERS: PCP Family Medicine; Visit Provider Nurse Practitioner Family
DX: K76.89 Other specified diseases of liver (principal); R74.8 Abnormal levels of other serum enzymes; Z85.3 Personal history of malignant neoplasm of breast
CPT/HCPCS: 76700

== ENCOUNTER 2023-10-30 14:34 | Outpatient (CLI) | payer OTHER, SELFPAY ==
--- NOTE | ~2023-10-30 | XR_ITS ---
AP and oblique views of the bilateral ribs, and PA and lateral chest radiograph Clinical History: Pain, dyspnea Findings: No rib fracture is seen. Osseous alignment is anatomic. Moderate left pleural effusion pres ent. Right lung clear. Cardiomediastinal contour is within normal limits. Soft tissues are unremarkab le. Impression: Moderate left pleural effusion. No rib fracture is seen. Reviewed, dictated and finalized at location . HOPAEDIC NURSE Impression: Moderate left pleural effusion. No rib fracture is seen.
[2023-10-30 15:50] LABS: Alanine Aminotransferase 185 U/L (6-35); Albumin Level 3.8 g/dL (3.5-5.1); Alkaline Phosphatase 305 U/L (38-126); Aspartate Amino Transferase 624 U/L (14-36); Bilirubin Direct 0.2 mg/dL (0-0.3); Bilirubin,Total 2.1 mg/dL (0.2-1.3)
== END 2023-10-30 14:35 | disposition home or self-care (01) ==
PROVIDERS: PCP Family Medicine; Visit Provider Nurse Practitioner Family
DX: R07.81 Pleurodynia (principal); R79.89 Other specified abnormal findings of blood chemistry; Z72.0 Tobacco use; J90 Pleural effusion, not elsewhere classified
CPT/HCPCS: 36415; 71046; 71110; 80076

== ENCOUNTER 2023-11-03 06:35 | Outpatient (CLI) | payer OTHER, SELFPAY ==
--- NOTE | ~2023-11-03 | MR_ITS ---
EXAMINATION: MR abdomen wo/w con DATE: 11/03/2023 07:43 INDICATION: Hepatomegaly, not elsewhere classified. Abnormal liver function tests. Breast cancer. TECHNIQUE: Magnetic resonance imaging (MRI) of the abdomen was performed without and with 15 mL Multi Edvin intravenous contrast. COMPARISON: Abdomen MRI 07/22/2011, CT abdomen and pelvis 05/29/2017 FINDINGS: There is a moderate-sized left pleural effusion with nodular pleural thickening. There is a mass in l eft upper lobe. There is mediastinal and left hilar lymphadenopathy. There are innumerable masses thr oughout the liver measuring up to 6.8 cm. There are gallstones in the gallbladder, which is normal in size. The spleen, pancreas, adrenal glands, and kidneys are normal. There are no dilated loops of [place] wel. There are no pathologically enlarged lymph nodes. There is no free intraperitoneal fluid. There is focal enhancement at a right posterior rib. IMPRESSION: 1. Left lung mass, mediastinal and left hilar lymphadenopathy, moderate-sized left pleural effusion w ith nodular pleural thickening, and innumerable liver masses, consistent with metastatic disease. 2. Focal enhancement at a right posterior rib, which may be fracture and/or metastatic disease. Reviewed, dictated and finalized at location E. DRAWER IN HELPER IMPRESSION: 1. Left lung mass, mediastinal and left hilar lymphadenopathy, moderate-sized l eft pleural effusion with nodular pleural thickening, and innumerable liver mas ses, consistent with metastatic disease. 2. Focal enhancement at a right posterior rib, which may be fracture and/or met astatic disease.
== END 2023-11-03 06:36 | disposition home or self-care (01) ==
PROVIDERS: PCP Family Medicine; Visit Provider Nurse Practitioner Family
DX: R16.0 Hepatomegaly, not elsewhere classified (principal); R74.8 Abnormal levels of other serum enzymes
CPT/HCPCS: 74183; A9577

== ENCOUNTER 2023-11-09 09:13 | Inpatient (IN) | payer OTHER, SELFPAY ==
[2023-11-09] VITALS (29 sets, daily range): BP systolic 104–127; BP diastolic 68–91; PULSE 117–140; RESP 17–28; TEMP 36.1–36.7; O2SAT 93–97; BMI 29.8
--- NOTE | ~2023-11-09 | CT_ITS ---
EXAMINATION: CT brain wo con DATE: 11/09/2023 21:02 INDICATION: Change in mental status. TECHNIQUE: Computed tomography (CT) of the head was performed without intravenous contrast. The mA wa s adjusted according to patient size. Iterative reconstruction technique was employed. The dose-lengt h product was 681.00 mGy-cm. COMPARISON: None FINDINGS: There is no intracranial hemorrhage, acute infarction, or abnormal intracranial mass lesion . The ventricles are normal in size. There is mild mucosal thickening in the paranasal sinuses. The m astoid air cells are normal. The orbits are normal. IMPRESSION: 1. Normal brain. Reviewed, dictated and finalized at location E. IMPRESSION: 1. Normal brain.
--- NOTE | ~2023-11-09 | CT_ITS ---
EXAMINATION: CT abdomen pelvis wo con DATE: 11/09/2023 18:14 INDICATION: Abdominal pain. Liver masses. TECHNIQUE: Computed tomography (CT) of the abdomen and pelvis was performed without intravenous contr ast. Automated exposure control and iterative reconstruction technique were employed. The dose-length product was 600.07 mGy-cm. COMPARISON: CT abdomen and pelvis 05/29/17, abdomen MRI 11/03/2023 FINDINGS: The visualized portions of the lung bases demonstrate mild chronic peripheral septal thicke cassy. There is a moderate-sized left pleural effusion. There is nodular pleural thickening in left he mithorax. Left hilar and mediastinal lymphadenopathy are noted. There are ruptured bilateral breast i mplants. The heart size is normal. No pericardial effusion. There are innumerable ill-defined liver m asses better seen by MRI. There is a 2.0 cm cyst in the liver. The spleen, gallbladder, pancreas, adr enal glands, and kidneys are normal. There is diverticulosis of the colon without evidence of diverti culitis. There are no dilated loops of bowel. The appendix is normal. There are no pathologically enl arged lymph nodes. There is no free intraperitoneal fluid. There is mild thoracic and lumbar spondylo sis. There is a fracture of right 11th rib. IMPRESSION: 1. Liver masses, mediastinal and left hilar lymphadenopathy, and moderate-sized left pleural effusion with nodular pleural thickening, consistent with metastatic disease. 2. Fracture of right 11th rib. Reviewed, dictated and finalized at location E. IMPRESSION: 1. Liver masses, mediastinal and left hilar lymphadenopathy, and moderate-sized left pleural effusion with nodular pleural thickening, consistent with metasta tic disease. 2. Fracture of right 11th rib.
--- NOTE | ~2023-11-09 | US_ITS ---
EXAMINATION: US biopsy liver DATE: 11/11/2023 11:45 INDICATION: Liver mass. TECHNIQUE: The procedure including the risks, benefits, and alternatives was discussed with the patie nt. Risks discussed included bleeding and infection. The patient understood the risks and agreed to p roceed. The skin overlying the left hepatic lobe was prepped and draped in usual sterile fashion. An esthetic was administered with 1% lidocaine subcutaneously. An 18 gauge core biopsy needle was then used to obtain 3 core biopsy specimens under continuous sonographic guidance. The entry site was felisa talib and dressed. There were no immediate complications. FINDINGS: Ultrasound images demonstrate the needle in ill-defined masses in the liver. IMPRESSION: 1. Ultrasound-guided core needle biopsy of ill-defined liver masses. Reviewed, dictated and finalized at location A.
--- NOTE | ~2023-11-09 | MR_ITS ---
MRI of the brain Clinical History: Acute encephalopathy Technique: Axial and sagittal T1-weighted images were acquired. These were followed by axial T2-weigh omar, diffusion weighted, gradient, and FLAIR images. Following intravenous administration of 14 cc Mu ltiHance gadolinium, T1-weighted fat-sat imaging was performed in the axial, coronal, and sagittal pl anes. COMPARISON: 11/13/2023 Findings: No abnormal signal evident in the brain parenchyma. No acute infarct, internal hemorrhage, or mass lesion. Ventricles and subarachnoid spaces are unremarkable. Orbits are unremarkable. Paranasal sinuses and m astoid air cells are clear. Major intracranial flow voids appear intact. Sagittal midline structures are intact. No abnormal postcontrast enhancement identified. IMPRESSION: No significant abnormality seen. Reviewed, dictated and finalized at location .
--- NOTE | ~2023-11-09 | XR_ITS ---
MODIFIED ESOPHAGRAM HISTORY: Swallow evaluation post stroke TECHNIQUE: Modified barium esophagram was performed on 11/15/2023. I administered fluoroscopy and perf ormed the exam with speech pathologist. Patient was seated for lateral fluoroscopic imaging for husam stion of thin liquids, pudding, solids and quantified amounts, followed by thin liquids in uncontroll ed amounts. This was recorded on tape. 2 fluoroscopic spot images were also recorded. The DAP for thi s procedure was 0.166 Gycm2. The amount of fluoroscopy time used during this procedure was 0.2 minute s. FINDINGS/IMPRESSION: The patient was unable to stay awake during the initial attempt at swallow and t he study was terminated. Reviewed, dictated and finalized at location A.
--- NOTE | ~2023-11-09 | NM_ITS ---
EXAMINATION: NM lung vent and perfusion DATE: 11/09/2023 14:16 INDICATION: Shortness of breath. TECHNIQUE: 11.6 mCi xenon-133 was given for ventilation images. 4.7 mCi Tc-99m MAA was administered i ntravenously for perfusion images. Scintigraphic images of the chest were obtained. COMPARISON: Chest single view 11/09/2023 FINDINGS: Ventilation images demonstrate large defects throughout left lung. Perfusion images show matched larg e defects throughout left lung. IMPRESSION: 1. Intermediate probability for pulmonary embolism. Reviewed, dictated and finalized at location E.
--- NOTE | ~2023-11-09 | XR_ITS ---
XR chest 1V portable DATE: 11/09/2023 10:04 INDICATION: Dyspnea TECHNIQUE: Portable AP chest on 11/09/2023 at 1002 hours COMPARISON: October 30, 2023 PA and lateral chest FINDINGS: Large left pleural effusion with associated compressive left lower lung atelectasis, mildly increased since October 30, 2023. The right lung appears essentially clear. Surgical clips overlie bilateral mid and lower chest and breasts. Nhung osteoarthritic spurring at the left glenohumeral joint. Osteopenia. IMPRESSION: Prominent left pleural effusion and associated compressive atelectasis, mildly increased since Reviewed, dictated and finalized at location A. IMPRESSION: Prominent left pleural effusion and associated compressive atelecta sis, mildly increased since
--- NOTE | ~2023-11-09 | XR_ITS ---
EXAMINATION: XR chest 2V DATE: 11/13/2023 09:21 INDICATION: Pleural effusion. TECHNIQUE: Frontal and lateral views of the chest were obtained. COMPARISON: Chest 2 views 11/11/2023 FINDINGS: There is a moderate-sized left pleural effusion. There are airspace opacities at left lung base. No pneumothorax. The heart size is obscured. There are surgical clips in the breasts. IMPRESSION: 1. Stable moderate-sized left pleural effusion. 2. Stable airspace opacities at left lung base, likely a combination of atelectasis and malignancy. Reviewed, dictated and finalized at location A. IMPRESSION: 1. Stable moderate-sized left pleural effusion. 2. Stable airspace opacities at left lung base, likely a combination of atelect asis and malignancy.
--- NOTE | ~2023-11-09 | XR_ITS ---
EXAMINATION: XR chest 1V portable DATE: 11/16/2023 13:04 INDICATION: Shortness of breath TECHNIQUE: Supine AP view of the chest was obtained. COMPARISON: Chest radiograph dated 11/13/23 FINDINGS: Patient is rotated slightly towards the left. Consolidation at the medial aspect of the left mid and upper lung zones consistent with atelectasis and/or pneumonia. There is moderate sized unilateral lef t pleural effusion extending along the periphery of the left hemithorax from the apex to the base and posteriorly resulting in increased opacity of the aerated portion of the left lung. Right lung remai ns clear. No pulmonary edema, pneumothorax or right-sided pleural effusion. Heart size is normal. Mul tiple surgical clips projecting over the left and right sides of the chest. IMPRESSION: 1. Moderate-sized left pleural effusion with atelectasis and/or pneumonia at the medial left mid to l ower lung. This is likely without significant interval change accounting for supine position of the p atient in the current study. Reviewed, dictated and finalized at location A. IMPRESSION: 1. Moderate-sized left pleural effusion with atelectasis and/or pneumonia at th e medial left mid to lower lung. This is likely without significant interval ch lionel accounting for supine position of the patient in the current study.
--- NOTE | ~2023-11-09 | XR_ITS ---
EXAMINATION: XR_[id number]_CR DATE: 11/11/2023 11:37 INDICATION: Left pleural effusion status post thoracentesis. TECHNIQUE: Frontal and lateral views of the chest were obtained. COMPARISON: Chest 2 views 07/24/2022, chest CT 11/10/2023 FINDINGS: There is a moderate-sized left pleural effusion with nodular pleural thickening. There are airspace opacities at left lung base. No pneumothorax. The heart size is normal. There are surgical c lips in the breasts. IMPRESSION: 1. Moderate-sized left pleural effusion with nodular pleural thickening with improvement status post thoracentesis, consistent with a malignant effusion. 2. Airspace opacities at left lung base, likely a combination of atelectasis and malignancy. Reviewed, dictated and finalized at location A. IMPRESSION: 1. Moderate-sized left pleural effusion with nodular pleural thickening with im provement status post thoracentesis, consistent with a malignant effusion. 2. Airspace opacities at left lung base, likely a combination of atelectasis an d malignancy.
--- NOTE | ~2023-11-09 | US_ITS ---
EXAMINATION: US thoracentesis DATE: 11/11/2023 11:44 INDICATION: pleural effusion TECHNIQUE: The procedure and its risks, benefits, and alternatives were discussed with the patient. P otential risks discussed included bleeding, infection, and pneumothorax. The patient understood the r isks and agreed to proceed. The skin was prepped and draped in sterile fashion. 1% lidocaine was used for local anesthesia. Under ultrasound guidance, a 5 Fr catheter with trochar was advanced into the left pleural effusion. Fluid was aspirated. The catheter was removed, and a dressing was applied. The re were no immediate complications. FINDINGS: Ultrasound images demonstrate a left pleural effusion and the catheter within the fluid. IMPRESSION: 1. Successful ultrasound-guided thoracentesis yielding 1000 mL of serosanguineous fluid. Reviewed, dictated and finalized at location A. IMPRESSION: 1. Successful ultrasound-guided thoracentesis yielding 1000 mL of serosanguine ous fluid.
--- NOTE | ~2023-11-09 | MR_ITS ---
EXAMINATION: MR brain/brain stem wo/w con DATE: 11/13/2023 17:42 INDICATION: Encephalopathy TECHNIQUE: Magnetic resonance imaging (MRI) of the brain and brainstem was performed without intraven ous contrast. Sequences included sagittal and axial T1-weighted SE, axial diffusion-weighted FS SE, a xial T2*-weighted GRE, axial T2-weighted FLAIR Propeller, and axial T2-weighted Propeller. Apparent d iffusion coefficient (ADC) maps were created. 15 cc of MultiHance administered intravenously. COMPARISON: MRI dated 08/28/[address] dated 11/09/2023. FINDINGS: There is a punctate focus of diffusion restriction involving the left parietal lobe adjacen t to the ventricle, consistent with acute infarction. No evidence for intracranial hemorrhage. No sig nificant mass effect. No ventriculomegaly or midline shift. Paranasal sinuses are unremarkable. Orbit s are symmetric without disconjugate gaze. Midline sagittal images are unremarkable. There are small chronic left cerebellar infarctions. No abnormal contrast enhancement. Structures of the posterior fo ssa including 7/8th cranial nerve complexes are otherwise unremarkable. IMPRESSION: 1. Small punctate area of diffusion restriction in the left parietal white matter, consistent with ac deering infarction. No mass effect or hemorrhage. 2: Small chronic left cerebellar infarctions. Reviewed, dictated and finalized at location A. IMPRESSION: 1. Small punctate area of diffusion restriction in the left parietal white joe er, consistent with acute infarction. No mass effect or hemorrhage. 2: Small chronic left cerebellar infarctions.
--- NOTE | ~2023-11-09 | CT_ITS ---
EXAMINATION: CTA chest PE protocol DATE: 11/10/2023 13:03 INDICATION: Shortness of breath. TECHNIQUE: Computed tomography angiography (CTA) of the chest was performed with 100 mL Omnipaque-350 intravenous contrast timed to evaluate the pulmonary arteries. Coronal maximum intensity projection 3D-reconstructions were created by the technologist. Automated exposure control and iterative reconst ruction technique were employed. The dose-length product was 452.43 mGy-cm. COMPARISON: CT abdomen and pelvis 11/09/2023 FINDINGS: There is mild emphysema. There is peripheral septal thickening in right lung. There is a la rge left pleural effusion with nodular pleural thickening noted. There is an ill-defined mass in left upper lobe with invasion of the mediastinum. There is no pulmonary embolus. The heart size is normal . No pericardial effusion. There are ruptured bilateral breast implants. There are innumerable masses in the liver. There is cortical thinning in right kidney. There is severe cervical spondylosis and m ild thoracic spondylosis. There is a lytic lesion of right fourth rib with pathologic fracture. There is a lytic lesion of right sixth rib with pathologic fracture. There is a lytic lesion of right 11th rib with pathologic fracture. There is a lytic lesion in left second rib. There is a lytic lesion in the sternum. IMPRESSION: 1. No pulmonary embolus. 2. Left lung mass, large left pleural effusion with nodular pleural thickening, liver masses, and bon e lesions, consistent with metastatic disease. 3. Mild emphysema. Reviewed, dictated and finalized at location A. IMPRESSION: 1. No pulmonary embolus. 2. Left lung mass, large left pleural effusion with nodular pleural thickening, liver masses, and bone lesions, consistent with metastatic disease. 3. Mild emphysema.
--- NOTE | 2023-11-09 09:14 | ECG_ITS ---
Measurements Intervals [place] Rate: 125 P: 20 MD: 136 QRS: 9 QRSD: 85 T: 40 QT: 300 QTc: 433 Interpretive Statements SINUS TACHYCARDIA DELAYED PRECORDIAL R/S TRANSITION NONSPECIFIC T-WAVE ABNORMALITY- HIGH LATERAL LEADS BASELINE ARTIFACT- I, II, AVR, AVL, AVF, V5-V6 ABNORMAL ECG COMPARED TO ECG 06/03/2022 03:53:17 SINUS TACHYCARDIA NOW PRESENT Electronically Signed On 11-09-2023 9:57:30 CDT by Jose Lopez D.O.
--- NOTE | 2023-11-09 09:50 | ED.SOB ---
HPI - SOB/Dyspnea General Chief Complaint: Weakness Stated Complaint: dyspnea Time Seen by Provider: 11/09/23 09:20 Source: patient Mode of arrival: ambulatory Limitations: no limitations History of Present Illness HPI Narrative: Maritza is a 63-year-old female patient presenting to the emergency room today with complaints of weakness and shortness of breath. She reports she is recently diagnosed with lung cancer, liver cancer, and possible mets to the left ribs. Had an abdominal MRI completed on November 02 which confirmed a upper left lung upper mass and multiple masses in the liver. Patient appears to be jaundiced. Stating that she short of breath and weak today. Oxygen saturation is 96% on room air. Heart rate is 122. Is scheduled to see oncologist on Friday of this week. Reporting nonproductive cough. Denies any fever, chills, or body aches Related Data Home Medications Medication Instructions Recorded Confirmed folic acid 0.8 mg capsule 0.8 mg PO DAILY 08/27/19 10/29/23 omeprazole 20 mg capsule,delayed 20 mg PO DAILY 08/27/19 10/29/23 release raloxifene 60 mg tablet (Evista) 60 mg PO DAILY 08/27/19 10/29/23 multivitamin 1 tablet PO DAILY 01/15/21 10/29/23 vitamin B complex 1 tablet PO DAILY 01/15/21 10/29/23 ustekinumab 90 mg/mL subcutaneous 90 mg subcut MONTHLY 10/09/23 10/29/23 syringe (Stelara) Allergies Allergy/AdvReac Type Severity Reaction Status Date / Time iodine Allergy Severe HIVES Verified 10/29/23 08:07 adhesive tape Allergy Unknown PLASTIC Verified 10/29/23 08:07 TAPE= BLISTERS codeine Allergy Unknown Unknown Verified 10/29/23 08:07 Review of Systems Review of Systems: Pertinent positives per HPI. Patient denies any fever, chills, rash, headache, visual changes, dizziness, chest pain, palpitations, nausea, vomiting, diarrhea, constipation, or any urinary issues. [facility] Past Medical History Medical History Acid reflux BMI 28.0-28.9,adult BMI 29.0-29.9,adult BMI 30.0-30.9,adult Bronchitis Crohn's disease Depression Fatigue OM (otitis media), recurrent Recurrent sinus infections Surgical History Surgical History Hx of colonoscopy Family History Family History Mother Family history of malignant neoplasm of breast in first degree relative Breast cancer Father Heart disease Aortobifemoral bypass graft thrombosis Sibling Lymphoma Kidney tumor Other Cerebrovascular accident Family history of coronary artery disease Hypertension Social History Social History Smoking packs per day: 0.5 Smoking cigarettes per day: 10.0 Years smoked: 45 Smoking pack-years: 22.50 Smoking status: Current every day smoker Tobacco type: cigarettes Second hand tobacco smoke exposure: Yes Alcohol intake: current Substance use: current Substance use type: marijuana Other substance usage details: gummies Do You Feel Safe in your Home?: Yes Lack of Transportation: No Lack of Food: Never True Current Housing: I Have Housing Concerned About Future Housing: No Difficulty Paying Gas/Electric Bills: No Difficulty Paying for Meds: No Currently Unemployed: No Education: Bachelor's Degree Difficulty w/ Childcare or Family Care: No Living arrangements: with family Occupation/Education: retired 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 There is no relevant family history pertinent to the patient complaint. Exam Narrative: General: Well-developed, well nourished, ill-appearing Head: Normocephalic, a
[2023-11-09 10:04] LABS: Basophils Percent Auto 0.3 % (0.2-1.2); Eosinophils Percent Auto 0.1 % (0-4.4); Hematocrit 38.5 % (37.0-47.0); Hemoglobin 12.8 g/dL (12.0-15.0); Immature Granulocyte Absolute 0.11 K/mm3 (0.00-0.031); Immature Granulocyte Percent A 0.8 % (0-0.5); Lymphocytes Absolute Auto 1.58 K/mm3 (0.9-3.2); Lymphocytes Percent Auto 11.8 % (18.3-44.2); Mean Corpuscular HGB Conc 33.2 g/dl (32-36); Mean Corpuscular Hemoglobin 30.9 pg (26-34); Mean Platelet Volume 10.2 fl (7.4-10.4); Monocytes Absolute Auto 1.1 K/mm3 (0.1-0.6); Monocytes Percent Auto 7.9 % (2.6-8.5); Neutrophils Absolute Auto 10.6 K/mm3 (1.3-6.7); Neutrophils Percent Auto 79.1 % (45.5-73.1); Platelet Count Result 578 k/mm3 (150-375); Red Blood Count 4.14 M/mm3 (4.2-5.4); Red Cell Distribution Width 15.2 % (11.5-14.5); White Blood Count 13.4 K/mm3 (4.5-10.0)
[2023-11-09 10:26] LABS: Alanine Aminotransferase 120 U/L (6-35); Albumin Level 3.7 g/dL (3.5-5.1); Alkaline Phosphatase 498 U/L (38-126); Anion Gap 7 mmol/L (8-16); Bilirubin,Total 5.6 mg/dL (0.2-1.3); Blood Urea Nitrogen 10 mg/dL (7-17); Calcium 11.8 mg/dL (8.4-10.2); Carbon Dioxide 29 mmol/L (22-30); Chloride 91 mmol/L (98-107); Estimated CRCL calculation 79 ml/min; Estimated Glomerular Filt Rate > 60; Glucose 92 mg/dL (65-110); Potassium 3.5 mmol/L (3.4-5.0); Sodium 127 mmol/L (137-145)
[2023-11-09 10:36] LABS: Aspartate Amino Transferase 888 U/L (14-36)
[2023-11-09 10:41] LABS: Influenza A QL RT-PCR Negative (Negative); Influenza B QL RT-PCR Negative (Negative); RSV RNA, RT-PCR Negative (Negative); SARS-CoV-2 RNA PCR Negative (Negative)
[2023-11-09 10:42] LABS: INR 1.2; Prothrombin Time 15.4 Seconds (11.1-14.7)
[2023-11-09 10:43] LABS: Partial Thromboplastin Time 30.4 SECONDS (22.3-36.8)
[2023-11-09 10:52] LABS: NT Pro B Type Natriuretic Pept 1680 pg/mL (19.9-100); Troponin I < 0.012 ng/mL (0.000-0.034)
[2023-11-09 11:03] LABS: Alveolar/Arterial O2 Gradient 42.2 mmHg; Base Excess ABG -0.6 mEq/l (+/-2.0); Fractional Inspired Oxygen 21 %; Oxygen Content ABG 17.2 %vol (16.0-22.0); Oxygen Saturation ABG 95.5 % (95.0-100.0); Oxyhemoglobin 91.8 % THb (90.0-100.0); PCO2 ABG 30.5 mmHg (35.0-45.0); PO2 FiO2 Ratio Arterial Blood 3.38 %; Total Hemoglobin 13.3 g/dL (12.0-18.0); pH ABG 7.476 (7.350-7.450)
[2023-11-09 11:05] LABS: Device ROOM AIR; Modified Allen's Test Pass; Site Drawn RIGHT RADIAL
[2023-11-09] MEDS: fentaNYL CITRATE INJ (*CRX) 100 MCG/2 ML VIAL 50 MCG IV PUSH ×2 (11:27→16:34)
[2023-11-09] MEDS: SODIUM CHLORIDE 0.9% IV 1,000 ML 150 ML IV CONT (11:27)
[2023-11-09] MEDS: ONDANSETRON INJ 4 MG/2 ML VIAL IV PUSH ×2 (11:27→16:34)
[2023-11-09 14:47] LABS: Appearance Urine Turbid (Clear); Bacteria Urine None Seen /hpf; Bilirubin Urine 3+ (Negative); Blood Urine Negative (Negative); Calcium Oxalate Crystals Urine Present /hpf; Color Urine Dark Yellow (Yellow); Glucose Urine UA Negative (Negative); Ketones Urine 1+ mg/dL (Negative); Leukocyte Esterase Ur 2+ LEU/UL (Negative); Nitrate Urine Positive (Negative); Non Pathogenic Casts >20; Protein Urine 2+ mg/dL (Negative); Specific Grav Ur 1.022 (1.001-1.035); Squamous Epithelial Cell Urine Few /hpf (Few); WBC Urine 21-50 /hpf
[2023-11-09 14:50] LABS: Add Urine Microscopic? YES
[2023-11-09 15:34] LABS: Basophils Percent Auto 0.3 % (0.2-1.2); Eosinophils Percent Auto 0.1 % (0-4.4); Hematocrit 37.9 % (37.0-47.0); Hemoglobin 12.5 g/dL (12.0-15.0); Immature Granulocyte Absolute 0.12 K/mm3 (0.00-0.031); Immature Granulocyte Percent A 0.9 % (0-0.5); Lymphocytes Absolute Auto 1.55 K/mm3 (0.9-3.2); Lymphocytes Percent Auto 11.6 % (18.3-44.2); Mean Corpuscular Hemoglobin 30.6 pg (26-34); Mean Corpuscular Volume 92.9 fl (80-100); Monocytes Absolute Auto 1.1 K/mm3 (0.1-0.6); Monocytes Percent Auto 8.1 % (2.6-8.5); Neutrophils Absolute Auto 10.6 K/mm3 (1.3-6.7); Platelet Count Result 564 k/mm3 (150-375); Red Blood Count 4.08 M/mm3 (4.2-5.4); Red Cell Distribution Width 15.5 % (11.5-14.5); White Blood Count 13.4 K/mm3 (4.5-10.0)
[2023-11-09] MEDS: HEPARIN SODIUM 5,000 UNITS/ML VIAL 5000 UNITS IV PUSH (15:42)
[2023-11-09] MEDS: HEPARIN SOD/D5W 100 UNITS/ML 25,000 UNITS/250 ML BAG 11 UNITS IV CONT (15:42)
[2023-11-09 15:44] LABS: INR 1.2; Partial Thromboplastin Time 30.3 SECONDS (22.3-36.8); Prothrombin Time 15.7 Seconds (11.1-14.7)
[2023-11-09] MEDS: SODIUM CHLORIDE 0.9% IV 1,000 ML 125 ML IV CONT (19:33)
[2023-11-09 19:58] LABS: Partial Thromboplastin Time 57.8 SECONDS (22.3-36.8)
[2023-11-09] MEDS: HEPARIN SODIUM 5,000 UNITS/ML VIAL 2500 UNITS IV PUSH (20:16)
--- NOTE | 2023-11-09 21:32 | PM.IMHP ---
H&P: HPI History of Present Illness Date/Time: 11/09/23 20:15 Chief Complaint: Fatigue, shortness of breath, weakness. Narrative: This is a 63-year-old female smoker with history of bilateral breast cancer about 7 years ago and Crohn's disease who presented to the emergency department accompanied by her for evaluation of weakness, fatigue, and shortness of breath. The patient provides the following history and her provides additional information, with the patient's permission. She had a routine appointment with her doctor at the beginning of the year and was found to have mildly elevated LFTs. A couple of weeks thereafter she was seen for evaluation of a several-day history of poor appetite, nausea, vomiting, dizziness, and ?feeling off.? She started having pain in the left side of her back not long thereafter. Abdominal ultrasound showed a 7 cm mass of the left hepatic lobe concerning for metastatic disease and a chest x-ray showed a moderate sized left pleural effusion. Abdominal MRI showed a left lung mass with mediastinal and left hilar lymphadenopathy, moderate size left pleural effusion with nodular pleural thickening, and innumerable liver masses consistent with metastatic disease. She was referred to Oncology and has an appoint with Dr. Correia on Friday. insisted that she come to the emergency department today as she has been going downhill quickly over the past 1 week. She is barely getting up from the bed or couch and reports that she is very weak and has a shuffling gait. She complains of pressure-like discomfort throughout her entire mid to upper abdomen and has had minimal oral intake. She continues to have pain in the left side of her back which is worse with deep inspiration. She is getting increasingly short of breath with lesser and lesser exertion. She denies fever, chills, sweats, headache, visual changes, facial droop, focal weakness, paresthesias, exertional chest pain, productive cough, vomiting, diarrhea, dysuria, pruritus, and edema. In the ED: She was afebrile on arrival and has been in a sinus tachycardia with rates in the low 100s to 120s. Respiratory rates have been in the mid to upper 20s and she is currently on 2 L nasal cannula with an SpO2 in the upper 90s. Labs were significant for WBC count of 13.4, INR 1.2, PT 15.7, PTT 57.8, sodium 127, chloride 91, BUN 10, creatinine 0.60, calcium 11.8, total bilirubin 5.6, AST 888, ALT 120, alkaline phosphatase 498, proBNP 1680, troponin less than 0.012. She tested negative for influenza, RSV, and COVID. Brain CT was negative. Chest x-ray shows prominent left pleural effusion and compressive atelectasis. V/Q scan was intermediate probability for pulmonary embolism. CT of the abdomen and pelvis showed liver masses, mediastinal left hilar lymphadenopathy, and moderate size left pleural effusion with nodular pleural thickening consistent with metastatic disease and a fracture of the right 11th rib. She was started on a heparin drip for possible pulmonary embolism; she will need pretreatment for contrast allergy (hives) for CTA of the chest tomorrow. She is being admitted in this setting for further evaluation and oncology consultation. Review of Systems Review of Systems: Twelve systems were reviewed and are negative except for as per HPI. [facility] Past Medical History Medical History (Updated 11/09/23 @ 21:54 by Ida Bojorquez PA-C) Bilateral breast cancer Crohn's disease Depression Tobacco abuse Surgical History Surgical History (Updated 11/09/23 @ 21:50 by Ida Bojorquez PA-C) History of bilateral breast implants History of bilateral mastectomy History of colonoscopy History of lumpectomy of both breasts Family History Family History Mother Family history of malignant neoplasm of breast in first degree relative Breast cancer Father Heart disease Aortobifemoral amrita
--- NOTE | 2023-11-09 22:13 | ADMGEN ---
This patient, Maritza Valle, was admitted to IMU Room 211-01. Patient/family oriented to hospital policies and general routines including ID bracelet, bed and alarms, visiting hours, pain management, procedures, bathroom and other care routines, personal items, smoking policy, room service/diet, and visiting hours. Information on how to activate the Rapid Response Team has been discussed. Patient/Family are encouraged to report perceived risks to care and to ask questions if they do not understand what they are told or what they should do.
--- NOTE | 2023-11-09 22:49 | PC.NURSE ---
Patient states she does not know her current medications and has a list in her purse at home. This RN called patient's who refuses to go over medication list at this time. states he will bring the list tomorrow.
[2023-11-09] MEDS: predniSONE 40 MG, predniSONE 10 MG 50 MG PO (23:07)
[2023-11-10] VITALS (12 sets, daily range): BP systolic 105–129; BP diastolic 56–74; PULSE 113–122; RESP 17–19; TEMP 36.2–36.9; O2SAT 92–96
[2023-11-10 00:27] LABS: Ammonia 28 umol/L (9-30)
[2023-11-10 02:53] LABS: Basophils Absolute Auto 0.1 K/mm3 (0.0-0.1); Basophils Percent Auto 0.4 % (0.2-1.2); Hematocrit 39.2 % (37.0-47.0); Hemoglobin 11.8 g/dL (12.0-15.0); Immature Granulocyte Absolute 0.12 K/mm3 (0.00-0.031); Immature Granulocyte Percent A 0.9 % (0-0.5); Immature Platelet Fraction Pct 3.5 % (0.9-11.2); Lymphocytes Absolute Auto 0.89 K/mm3 (0.9-3.2); Mean Corpuscular HGB Conc 30.1 g/dl (32-36); Mean Corpuscular Hemoglobin 30.7 pg (26-34); Mean Corpuscular Volume 102.1 fl (80-100); Monocytes Absolute Auto 0.3 K/mm3 (0.1-0.6); Monocytes Percent Auto 2.5 % (2.6-8.5); Neutrophils Absolute Auto 11.3 K/mm3 (1.3-6.7); Neutrophils Percent Auto 89.2 % (45.5-73.1); Platelet Count Result 442 k/mm3 (150-375); Red Blood Count 3.84 M/mm3 (4.2-5.4); Red Cell Distribution Width 15.9 % (11.5-14.5); White Blood Count 12.7 K/mm3 (4.5-10.0)
[2023-11-10 03:44] LABS: Partial Thromboplastin Time 50.1 SECONDS (22.3-36.8)
[2023-11-10] MEDS: HEPARIN SODIUM 5,000 UNITS/ML VIAL 5000 UNITS IV PUSH (03:52)
[2023-11-10 05:20] LABS: Anion Gap 12 mmol/L (8-16); Blood Urea Nitrogen 14 mg/dL (7-17); Calcium 11.4 mg/dL (8.4-10.2); Carbon Dioxide 22 mmol/L (22-30); Chloride 92 mmol/L (98-107); Creatine Kinase 285 U/L (30-135); Estimated CRCL calculation 80 ml/min; Estimated Glomerular Filt Rate > 60; Glucose 86 mg/dL (65-110); Potassium 3.6 mmol/L (3.4-5.0); Sodium 126 mmol/L (137-145)
[2023-11-10] MEDS: predniSONE 40 MG, predniSONE 10 MG 50 MG PO ×2 (05:22→11:00)
[2023-11-10] MEDS: SODIUM CHLORIDE 0.9% IV 1,000 ML 125 ML IV CONT (06:07)
[2023-11-10 06:09] LABS: Vitamin B12 > 1000.0 pg/mL (239-931)
--- NOTE | 2023-11-10 10:37 | PDONCCN ---
HPI - Date of Consult Date/Time: 11/10/23 18:37 <Carlos Correia - 11/10/23 18:39> 11/10/23 10:37 <Amber Milian - 11/10/23 10:45> Requesting Physician: Denzel Alvarez MD <Carlos Correia - 11/10/23 18:39> Denzel Alvarez MD <Amber Milian - 11/10/23 10:45> Primary Care Provider: Ronnie Garcia MD <Carlos Correia - 11/10/23 18:39> Ronnie Garcia MD <Amber Milian - 11/10/23 10:45> - Consult Narrative Reason for consult: Liver Metastasis <Amber Milian - 11/10/23 10:45> Narrative: Maritza Valle is a 63 year old female <Carlos Correia - 11/10/23 18:39> Maritza Valle is a 63 year old female with a past medical history of Crohn's disease and breast cancer. She was diagnosed with breast cancer ~7yrs ago. She had a mastectomy and had chemo/radiation per patient. She was admitted for increased weakness, fatigue, and shortness of breath. She seems a little confused when speaking with her. She saw her PCP and wasn't feeling well. They did an MRI of the abdomen on 11/02 which showed left lung mass, mediastinal and left hilar lymphadenopathy moderate sized left pleural effusion with konrad pleural thickening and liver masses consistent with metastatic disease. There is a R 11th rib fracture as well. She reports diarrhea and constipation. She reports dull ache pain in her abdomen and shortness of breath. Reports poor appetite. She has a smoking history of 1/2 pack/day for 30+ years. She reports an alcohol history as well and used to drink every day. Upon admission, she tested negative for influenza, RSV, and COVID. Brain CT was negative. Chest x-ray shows prominent left pleural effusion and compressive atelectasis. V/Q scan was intermediate probability for pulmonary embolism. CT of the abdomen and pelvis showed liver masses, mediastinal left hilar lymphadenopathy, and moderate size left pleural effusion with nodular pleural thickening consistent with metastatic disease and a fracture of the right 11th rib. She was started on a heparin drip for possible pulmonary embolism. Labs are notable for WBC 12.7, Hgb 11.8 Hct 30, Plt 442,000, and elevated LFTS. <MaicolAmber - 11/10/23 11:02> Review of Systems - Review of Systems All systems reviewed & are unremarkable except as noted in HPI and bel <Amber Milian - 11/10/23 10:45> [facility] Medical History: Medical History (Last Updated 11/09/23 @ 21:50 by Ida Bojorquez PA-C) Bilateral breast cancer Crohn's disease Depression Tobacco abuse <Carlos Correia - 11/10/23 18:39> Medical History (Last Updated 11/09/23 @ 21:50 by Ida Bojorquez PA-C) Bilateral breast cancer Crohn's disease Depression Tobacco abuse <Amber Milian - 11/10/23 10:45> Surgical History: Surgical History (Last Updated 11/09/23 @ 21:50 by Ida Bojorquez PA-C) History of bilateral breast implants History of bilateral mastectomy History of colonoscopy History of lumpectomy of both breasts <Carlos Correia - 11/10/23 18:39> Surgical History (Last Updated 11/09/23 @ 21:50 by Ida Bojorquez PA-C) History of bilateral breast implants History of bilateral mastectomy History of colonoscopy History of lumpectomy of both breasts <Amber Milian - 11/10/23 10:45> Family History: Family History (Last Reviewed 11/09/23 @ 23:33 by Supa Coats RN) Mother Family history of malignant neoplasm of breast in first degree relative Breast cancer Father Heart disease Aortobifemoral bypass graft thrombosis Sibling Lymphoma Kidney tumor Other Cerebrovascular accident Family history of coronary artery disease Hypertension <Carlos Correia - 11/10/23 18:39> Family History (Last Reviewed 11/09/23 @ 23:33 by Supa Coats, ETELVINA) Mother Family history of malignant neoplasm of breast in first
[2023-11-10 11:01] LABS: Partial Thromboplastin Time 71.4 SECONDS (22.3-36.8)
[2023-11-10] MEDS: diphenhydrAMINE HCl INJ 50 MG/ML VIAL IV PUSH (12:16)
[2023-11-10] MEDS: HEPARIN SOD/D5W 100 UNITS/ML 25,000 UNITS/250 ML BAG 14 UNITS IV CONT (12:18)
[2023-11-10 16:41] LABS: Partial Thromboplastin Time 39.9 SECONDS (22.3-36.8)
--- NOTE | 2023-11-10 16:48 | PM.IMPN ---
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 Code(s): C79.9 - Secondary malignant neoplasm of unspecified site Status: Acute (2) Urinary tract infection: Code(s): N39.0 - Urinary tract infection, site not specified Status: Acute (3) Transaminitis: Code(s): R74.01 - Elevation of levels of liver transaminase levels Status: Acute (4) Pleural effusion on left: Code(s): J90 - Pleural effusion, not elsewhere classified Status: Acute Plan # metastatic disease, cancer of unknown origin -patient's history breast cancer however now has signs of metastatic disease with liver nodules, mediastinal left hilar lymphadenopathy -liver biopsy ordered by oncology team -appreciate oncology consultation -of note, PE is ruled out with negative CTA, discontinue heparin drip -IV fluids normal saline 100 cc/hour, will continue to wash out contrast # left pleural effusion -plan for ultrasound-guided thoracentesis, will need cultures and cytology, orders placed -dyspnea may be from effusion as CTA ruled out embolism # urine tract infection -UA concerning for UTI with elevated WBC, nitrite + and leuk esterase +, UCx pending -WBC 12.7 K -antibiotics: Rocephin 11/08- -BCx pending # chronic conditions -history of breast cancer bilateral: on raloxifene -history of Crohn's disease, may continue home folic acid, vitamin-B complex, multivitamin -depression -nicotine dependence -GERD: Omeprazole -muscle spasm: May continue home Flexeril Diet: Regular diet, NPO midnight for possible thoracentesis tomorrow DVT prophylaxis: SCDs, off heparin drip, patient will need to be off chemo prophylaxis for biopsies in thoracentesis Code status: Full code Disposition: Likely home in > 2 days Time Spent With Patient Time: 40 minutes Subjective Date/time seen: 11/10/23 16:48 Interval history: Patient seen and examined. Patient was admitted overnight with worsening dyspnea. She was presumed to have a possible PE and placed on heparin drip. CT is negative, we will discontinue heparin drip. Oncology team has seen patient recommending liver biopsy, thoracentesis for further workup of the malignancy. Patient sources dyspnea. She denies fever, chills, nausea, vomiting diarrhea. Review of Systems Review of Systems: 10 point ROS complete, negative other than what is specified in HPI. Exam Narrative: - GENERAL: Pleasant woman no acute distress - EYES: EOMI. Anicteric. - HENT: Moist mucous membranes. - LUNGS: Clear to auscultation bilaterally, no wheezing, rhonchi, or rales. - CARDIOVASCULAR: Regular rate and rhythm. No murmur. - ABDOMEN: Soft, non-tender and non-distended. - EXTREMITIES: No edema. Peripheral pulses 2+. Non-tender. - NEUROLOGIC: No focal neurological deficits. CN II-XII grossly intact. - PSYCHIATRIC: Awake, Alert and oriented x 3. Appropriate mood and affect. Patient lacks insight - SKIN: No rashes or lesions. Warm. - LYMPH: No cervical lymphadenopathy. Objective Data Vital Signs Vital Signs: Vital Signs - 24 hr 11/09/23 17:16 11/09/23 17:31 11/09/23 17:42 Temperature 36.4 C Pulse Rate 121 H 120 H Respiratory Rate 25 H 24 H Blood Pressure 127/68 109/71 Pulse Oximetry 96 97 Oxygen Delivery 11/09/23 17:32 11/09/23 18:31 11/09/23 20:19 Temperature Pulse Rate 120 H 118 H 119 H Respiratory Rate 18 22 H 28 H Blood Pressure 111/83 Pulse Oximetry 96 97 96 Oxygen Delivery 11/09/23 20:26 11/09/23 19:15 11/09/23 21:39 Temperature Pulse Rate 118 H 119 H Respiratory Rate 23 H 26 H Blood Pressure 116/76 104/84 Pulse Oximetry 96 96 94 Oxygen Delivery Room Air 11/09/23 22:23 11/10/23 00:13 11/10/23 00:00 Temperature 36.1 C L 36.3 C L Pulse Rate 117 H 114 H 115 H Respiratory Rate 26 H 18 Blood Pressure 124/80 120/56 L Pulse O
[2023-11-10] MEDS: diphenhydrAMINE HCl INJ 50 MG/ML VIAL (19:39)
[2023-11-10] MEDS: SODIUM CHLORIDE 0.9% IV 1,000 ML 100 ML IV CONT (19:39)
[2023-11-10 22:00] LABS: Lactate Dehydrogenase 3761 U/L (120-246)
--- NOTE | 2023-11-10 22:05 | PC.NURSE ---
This patient, Maritza Valle, was transferred to [facility] on 11/10/23 at 2205. Personal belongings sent with patient. Report given to ETELVINA Perez. Appropriate documentation sent with patient.
[2023-11-11] VITALS (9 sets, daily range): BP systolic 125–155; BP diastolic 60–103; PULSE 111–117; RESP 15–20; TEMP 35.7–36.4; O2SAT 93–97
[2023-11-11 05:32] LABS: Hematocrit 34.2 % (37.0-47.0); Hemoglobin 11.2 g/dL (12.0-15.0); Mean Corpuscular HGB Conc 32.7 g/dl (32-36); Mean Corpuscular Hemoglobin 30.5 pg (26-34); Mean Corpuscular Volume 93.2 fl (80-100); Mean Platelet Volume 10.5 fl (7.4-10.4); Platelet Count Result 508 k/mm3 (150-375); Red Blood Count 3.67 M/mm3 (4.2-5.4); Red Cell Distribution Width 15.5 % (11.5-14.5); White Blood Count 17.2 K/mm3 (4.5-10.0)
[2023-11-11 05:43] LABS: INR 1.2; Prothrombin Time 16.2 Seconds (11.1-14.7)
[2023-11-11 05:47] LABS: Alanine Aminotransferase 113 U/L (6-35); Albumin Level 3.2 g/dL (3.5-5.1); Alkaline Phosphatase 437 U/L (38-126); Anion Gap 4 mmol/L (8-16); Bilirubin,Total 4.4 mg/dL (0.2-1.3); Blood Urea Nitrogen 13 mg/dL (7-17); Calcium 11.4 mg/dL (8.4-10.2); Carbon Dioxide 28 mmol/L (22-30); Chloride 97 mmol/L (98-107); Estimated CRCL calculation 95 ml/min; Estimated Glomerular Filt Rate > 60; Glucose 99 mg/dL (65-110); Magnesium 1.9 mg/dL (1.6-2.3); Potassium 3.4 mmol/L (3.4-5.0); Sodium 129 mmol/L (137-145)
[2023-11-11 06:02] LABS: Aspartate Amino Transferase 854 U/L (14-36)
[2023-11-11 11:56] LABS: pH Pleural Fluid > 7.500 (7.210-7.500)
[2023-11-11] MEDS: MULTIVITAMINS THERAPEUTIC TAB (*BKC) 1 TABLET PO (12:37)
[2023-11-11] MEDS: PANTOPRAZOLE 40 MG TABLET PO (12:37)
[2023-11-11] MEDS: VITAMIN B COMPLEX CAPSULE 1 CAP PO (12:37)
[2023-11-11] MEDS: RALOXIFENE HCL (*CHEMO) 60 MG TABLET PO (12:38)
[2023-11-11] MEDS: FOLIC ACID 1 MG TABLET PO (12:38)
[2023-11-11 12:39] LABS: Appearance Pleural Fluid Cloudy (Clear); Pleural fluid source Pleural fluid
[2023-11-11 12:40] LABS: Color Pleural Fluid Other (Colorless); Lymphocytes Pleural Fluid 75 %; Macrophages Pleural Fluid 15 %; Mesothelial Cells Pleural Flui 2 %; Monocytes Pleural Fluid 4 %; Neutrophils Pleural Fluid 4 % (0-25)
[2023-11-11 13:09] LABS: Ammonia < 9 umol/L (9-30)
--- NOTE | 2023-11-11 13:16 | PM.IMPN ---
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 Code(s): C79.9 - Secondary malignant neoplasm of unspecified site Status: Acute (2) Urinary tract infection: Code(s): N39.0 - Urinary tract infection, site not specified Status: Acute (3) Transaminitis: Code(s): R74.01 - Elevation of levels of liver transaminase levels Status: Acute (4) Pleural effusion on left: Code(s): J90 - Pleural effusion, not elsewhere classified Status: Acute (5) Dehydration: Code(s): E86.0 - Dehydration Status: Acute (6) Liver cancer: Qualifiers: Liver malignancy type: unspecified liver malignancy Qualified Code(s): C22.9 - Malignant neoplasm of liver, not specified as primary or secondary Code(s): C22.9 - Malignant neoplasm of liver, not specified as primary or secondary Status: Acute (7) Lung cancer: Qualifiers: Laterality: left Lung location: upper lobe of lung Qualified Code(s): C34.12 - Malignant neoplasm of upper lobe, left bronchus or lung Code(s): C34.90 - Malignant neoplasm of unspecified part of unspecified bronchus or lung Status: Acute (8) Sinus tachycardia: Code(s): R00.0 - Tachycardia, unspecified Status: Acute (9) Elevated brain natriuretic peptide (BNP) level: Code(s): R79.89 - Other specified abnormal findings of blood chemistry Status: Acute (10) Acute encephalopathy: Code(s): G93.40 - Encephalopathy, unspecified Status: Acute Plan 63-year-old female with a history of bilateral breast cancer 7 years prior on raloxifene, Crohn's disease, depression, tobacco abuse presents with weakness fatigue and shortness of breath. Admitted on 11/09/2023 for apparent metastasis and left pleural effusion. Left pleural effusion -status post thoracentesis healing 1 L of serosanguineous fluid on 11/11/2023 -not completely resolved. Continue to monitor and consider advanced therapies for recurrent malignant pleural effusion. Follow-up studies. Acute encephalopathy -could be due to metastasis or UTI. Check ammonia level and ABG -COVID RSV flu negative Sinus tachycardia -continue to monitor. Likely due to other ongoing issues. -chest CTA negative for PE Acute complicated UTI -blood cultures pending -urine culture negative -ceftriaxone started on 11/08 -monitor leukocytosis -check procalcitonin Transaminitis/hyperbilirubinemia -this is relatively new possibly due to her liver mass. This needs to be monitored very closely. -check ammonia level given her encephalopathy. GI consulted for further recommendations Metastatic disease/liver mass -status post liver biopsy on 11/11/2023. Pending pathology Elevated BNP -elevated on admission and after fluid resuscitation due to the thought she was try she has developed bilateral lower extremity swelling. -discontinue fluids. BNP elevated on admission. Check surface echocardiogram. She may likely benefit from cautious diuresis Hyponatremia -could be due to low effective arterial volume or SIADH due to cancer. His did improve status post fluid resuscitation -check urine osmolality and sodium Hypercalcemia -check PTH. Mild. Did not improved status post fluid resuscitation FEN: Saline lock IV. Regular diet. GI prophylaxis: Not indicated DVT prophylaxis: Lovenox Lines: Peripheral IV Code Status: Full code Dispo: Stable on medical floor Subjective Date/time seen: 11/11/23 13:16 Interval history: No acute overnight events. Patient wants to go home. She complains of a heaviness in her breathing. She admits to leg swelling since she has been admitted. No abdominal pain or nausea vomiting. Review of Systems Review of Systems: All systems reviewed & are unremarkable except as noted in HPI and below (Subjective) E
[2023-11-11 13:21] LABS: Lipase 180 U/L (23-300)
[2023-11-11] MEDS: ENOXAPARIN 40 MG/0.4 ML SYRINGE SUB-Q (15:37)
[2023-11-12] VITALS (9 sets, daily range): BP systolic 110–152; BP diastolic 62–93; PULSE 104–118; RESP 16–22; TEMP 36.2–36.8; O2SAT 94–97
--- NOTE | 2023-11-12 | ECHO_ITS ---
Patient Info Name: Maritza Valle Age: 63 years : 1960 Gender: Female Ht: 63 in Wt: 169 lbs BSA: 1.87 m2 HR: 118 bpm BP: 144 / 83 mmHg Technical Quality: Fair Exam Date: 11/12/2023 8:50 AM Exam Location: Echo Lab Exam Room: 255 Patient Status: Inpatient Admit Date: 11/09/2023 Staff Ordering Physician: Paty Glover MD Lawn Mower Sharpener: Betsey Martinez RDCS Attending Provider: Denzel Alvarez MD Exam Type: CA echo doppler color flow Study Info Indications - CHF S/P LIVER BIOPSY Complete two-dimensional, color flow and Doppler transthoracic echocardiogram is performed. Summary 1. Complete two-dimensional, color flow and Doppler transthoracic echocardiogram is performed. 2. Left ventricular chamber dimension is normal. 3. Left ventricular systolic function is normal, estimated at 60-65%. 4. The left ventricular diastolic function is grade I diastolic dysfunction. 5. E/e' 9 is minimally elevated. 6. There is trace tricuspid valve regurgitation. 7. Mild pulmonary hypertension, estimated pulmonary arterial systolic pressure is 46 mmHg. 8. There is trace pulmonic regurgitation. Left Ventricle E/e' 9 is minimally elevated. Left ventricular chamber dimension is normal. Left ventricular systolic function is normal, estimated at 60-65%. The left ventricular diastolic function is grade I diastolic dysfunction. Right Ventricle Right ventricular chamber dimension is normal. Right ventricular systolic function is normal. Left Atria Left atrial chamber dimension is normal. Right Atria Right atrial chamber dimension is normal. Aortic Valve The aortic valve is trileaflet. There is no aortic valve stenosis. There is no aortic valve regurgitation. Pulmonic Valve There is trace pulmonic regurgitation. Mitral Valve There is no mitral valve stenosis. There is no mitral valve regurgitation. Tricuspid Valve There is trace tricuspid valve regurgitation. Mild pulmonary hypertension, estimated pulmonary arterial systolic pressure is 46 mmHg. Pericardium/Pleural There is no pericardial effusion. Inferior Vena Cava Normal inferior vena cava with >50% collapse upon inspiration consistent with normal right atrial pressure, 5 mmHg. Aorta The aortic root size at the sinus of Valsalva is normal. Left Ventricular Outflow Tract Name Value Normal LVOT 2D LVOT Diameter 2.0 cm LVOT Doppler LVOT Peak Gradient 6 mmHg LVOT Mean Gradient 3 mmHg LVOT VTI 21 cm LVOT VTI/AV VTI Ratio 1.1 LVOT Stroke Volume 66 ml LVOT CO 16.1 l/min LVOT CI 8.6 l/min/m2 Pulmonic Valve Name Value Normal RVOT Doppler RVOT Peak Gradient 2 mmHg PV Doppler
--- NOTE | 2023-11-12 05:29 | PC.NURSE ---
Nurse requested that patient AM labs be held until she wakes up. Patient has only been asleep for 20 minutes prior to lab arriving and was awake the rest of the night. Throughout the night, patient became increasingly confused, more impulsive, and harder to reorient. She would benefit from a few hours of uninterrupted sleep. Will call lab once patient is awake.
[2023-11-12] MEDS: CYCLOBENZAPRINE HCL 10 MG TABLET PO (05:35)
[2023-11-12 07:12] LABS: Basophils Percent Auto 0.2 % (0.2-1.2); Hematocrit 33.6 % (37.0-47.0); Hemoglobin 11.3 g/dL (12.0-15.0); Immature Granulocyte Absolute 0.15 K/mm3 (0.00-0.031); Immature Granulocyte Percent A 1.1 % (0-0.5); Lymphocytes Absolute Auto 1.42 K/mm3 (0.9-3.2); Lymphocytes Percent Auto 10.7 % (18.3-44.2); Mean Corpuscular HGB Conc 33.6 g/dl (32-36); Mean Corpuscular Hemoglobin 31.7 pg (26-34); Mean Corpuscular Volume 94.4 fl (80-100); Monocytes Absolute Auto 1.1 K/mm3 (0.1-0.6); Monocytes Percent Auto 8.1 % (2.6-8.5); Neutrophils Absolute Auto 10.6 K/mm3 (1.3-6.7); Neutrophils Percent Auto 79.9 % (45.5-73.1); Platelet Count Result 436 k/mm3 (150-375); Red Blood Count 3.56 M/mm3 (4.2-5.4); Red Cell Distribution Width 15.9 % (11.5-14.5); White Blood Count 13.3 K/mm3 (4.5-10.0)
[2023-11-12 07:33] LABS: Parathyroid Intact 4.9 pg/mL (7.5-53.5)
[2023-11-12 07:35] LABS: Alanine Aminotransferase 111 U/L (6-35); Albumin Level 3.2 g/dL (3.5-5.1); Alkaline Phosphatase 394 U/L (38-126); Anion Gap 6 mmol/L (8-16); Bilirubin,Total 5.6 mg/dL (0.2-1.3); Blood Urea Nitrogen 12 mg/dL (7-17); Calcium 11.5 mg/dL (8.4-10.2); Carbon Dioxide 25 mmol/L (22-30); Chloride 96 mmol/L (98-107); Estimated CRCL calculation 94 ml/min; Estimated Glomerular Filt Rate > 60; Glucose 85 mg/dL (65-110); Potassium 3.8 mmol/L (3.4-5.0); Sodium 127 mmol/L (137-145)
[2023-11-12 07:44] LABS: Procalcitonin 22.5 ng/mL
[2023-11-12 07:45] LABS: Aspartate Amino Transferase 852 U/L (14-36)
[2023-11-12 08:14] LABS: Hepatitis B Surface Antigen Negative (Negative)
[2023-11-12 08:19] LABS: HAV RESULT Negative (Negative); Hepatitis B Core IgM Result Negative (Negative)
[2023-11-12 08:31] LABS: Hepatitis C Virus Antibody Negative (Negative)
[2023-11-12] MEDS: RALOXIFENE HCL (*CHEMO) 60 MG TABLET PO (09:19)
[2023-11-12] MEDS: VITAMIN B COMPLEX CAPSULE 1 CAP PO (09:19)
[2023-11-12] MEDS: ENOXAPARIN 40 MG/0.4 ML SYRINGE SUB-Q (09:19)
[2023-11-12] MEDS: PANTOPRAZOLE 40 MG TABLET PO (09:19)
[2023-11-12] MEDS: MULTIVITAMINS THERAPEUTIC TAB (*BKC) 1 TABLET PO (09:19)
[2023-11-12] MEDS: FOLIC ACID 1 MG TABLET PO (09:19)
--- NOTE | 2023-11-12 10:34 | WPDGICN ---
Assessment and Plan Assessment and plan (1) Elevated liver enzymes: Code(s): R74.8 - Abnormal levels of other serum enzymes Status: Acute Assessment and Plan: -elevated liver enzymes in a mixed pattern likely consistent with liver metastasis seen on imaging. -Ammonia level is normal, encephalopathy not related to liver disease -will continue to monitor -No further work up at this time (2) Crohn's disease: Qualifiers: Gastrointestinal tract location: unspecified location Digestive disease complication type: without complication Qualified Code(s): K50.90 - Crohn's disease, unspecified, without complications Code(s): K50.90 - Crohn's disease, unspecified, without complications Status: Acute Assessment and Plan: Had been on Stelara having no acute issues at this time Followed with GI at [facility], Dr. Mark Clark (3) Acute encephalopathy: Code(s): G93.40 - Encephalopathy, unspecified Status: Acute Assessment and Plan: Not hepatic related, ammonia level normal has sitter with her (4) Metastatic disease: Qualifiers: Digestive structure secondary neoplasm location: metastatic to liver Code(s): C79.9 - Secondary malignant neoplasm of unspecified site Status: Acute Assessment and Plan: Oncology following, thought to be primary lung with liver metastasis s/p liver bx of liver mass and thoracentesis of pleural fluid, still pending (5) Urinary tract infection: Code(s): N39.0 - Urinary tract infection, site not specified Status: Acute (6) Pleural effusion on left: Code(s): J90 - Pleural effusion, not elsewhere classified Status: Acute (7) Liver cancer: Qualifiers: Liver malignancy type: unspecified liver malignancy Qualified Code(s): C22.9 - Malignant neoplasm of liver, not specified as primary or secondary Code(s): C22.9 - Malignant neoplasm of liver, not specified as primary or secondary Status: Acute (8) Lung cancer: Qualifiers: Laterality: left Lung location: upper lobe of lung Qualified Code(s): C34.12 - Malignant neoplasm of upper lobe, left bronchus or lung Code(s): C34.90 - Malignant neoplasm of unspecified part of unspecified bronchus or lung Status: Acute GI Consult Note Consult date/time: 11/12/23 10:00 Reason for consult: Elevated liver enzymes HPI: Maritza Valle is a 63 year old female asked to be seen at the request of the hospitalist for elevated liver enzymes. She does have a past medical history of Crohn's disease and breast cancer. She has imaging concerning for liver metastasis and a lung mass. CTA with no evidence of pulmonary embolism, oncology is following with concerns for metastatic lung cancer with liver Mets. She did have a liver biopsy and thoracentesis completed yesterday for cytology which is still pending. She tells me she has never been told she had elevated liver enzymes in the past. It appears her t bili, ast, alt and alk phos elevation all started around 10/2023 and this proceeding with outpatient US and MRI abdomen. Denies any history of chronic liver problems, family history of chronic liver disease, liver autoimmune diseases. She denies any past medical history of hepatitis C or chronic alcohol abuse. She does report lower leg swelling and abdominal distention. Reports some abdominal discomfort in the right upper quadrant that started after the liver biopsy. Denies any diarrhea, constipation, melena or hematochezia. Denies any fevers. She denies being confused or any recent falls at home. In regards to her Crohn's disease she was seeing Dr. Eduardo Flores at [facility] and taking Stelara. Review of Systems Constitutional: Constitutional: Reports as per HPI ENT: Reports as per HPI Cardiovascular: Cardiovascular: Reports as per HPI Gastrointestinal: Gastrointestinal: Reports as per HPI Musculoskeletal:
--- NOTE | 2023-11-12 10:39 | P.CDI_ITS ---
CDI Query Clarification Request Encephalopathy has been noted in this patients medical record. Additional findings also documented in the medical record : Acute encephalopathy -could be due to metastasis or UTI.? Check ammonia level and ABG -COVID RSV flu negative Acute complicated UTI -blood cultures pending -urine culture negative -ceftriaxone started on 11/08 -monitor leukocytosis -check procalcitonin Patient being treated with Rocephin 1 gm at HS. Ammonia level 11/09/23 28 11/11/23 <9 ABG 11/09/23 Ph 7.416 PO2 71.0 PCO2 30.5 Sodium level 11/09/23 127 Based on your medical judgement can you further clarify in the progress notes, the type encephalopathy if known: * Metabolic * Toxic * Hepatic * Hypertensive * Other * Unable to Determine
[2023-11-12 11:33] LABS: Alveolar/Arterial O2 Gradient 30.4 mmHg; Base Excess ABG 1.1 mEq/l (+/-2.0); Carboxyhemoglobin 0.2 % THb (0-2.0); Fractional Inspired Oxygen 21 %; HCO3 ABG 22.8 mEq/l (22.0-26.0); Methemoglobin ABG 0.4 %THb (0-1.5); Oxygen Saturation ABG 97.5 % (95.0-100.0); Oxyhemoglobin 96.1 % THb (90.0-100.0); PCO2 ABG 28.1 mmHg (35.0-45.0); PO2 ABG 85.7 mmHg (80.0-100.0); PO2 FiO2 Ratio Arterial Blood 4.08 %; Reduced Hemoglobin 3.3 %THb (0-5.0); Total Hemoglobin 12.5 g/dL (12.0-18.0)
[2023-11-12 11:36] LABS: Device ROOM AIR; Modified Allen's Test Pass; Site Drawn LEFT RADIAL; pH ABG 7.528 (7.350-7.450)
--- NOTE | 2023-11-12 11:47 | PM.IMPN ---
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 Code(s): C79.9 - Secondary malignant neoplasm of unspecified site Status: Acute (2) Urinary tract infection: Code(s): N39.0 - Urinary tract infection, site not specified Status: Acute (3) Transaminitis: Code(s): R74.01 - Elevation of levels of liver transaminase levels Status: Acute (4) Pleural effusion on left: Code(s): J90 - Pleural effusion, not elsewhere classified Status: Acute (5) Dehydration: Code(s): E86.0 - Dehydration Status: Acute (6) Liver cancer: Qualifiers: Liver malignancy type: unspecified liver malignancy Qualified Code(s): C22.9 - Malignant neoplasm of liver, not specified as primary or secondary Code(s): C22.9 - Malignant neoplasm of liver, not specified as primary or secondary Status: Acute (7) Lung cancer: Qualifiers: Laterality: left Lung location: upper lobe of lung Qualified Code(s): C34.12 - Malignant neoplasm of upper lobe, left bronchus or lung Code(s): C34.90 - Malignant neoplasm of unspecified part of unspecified bronchus or lung Status: Acute (8) Sinus tachycardia: Code(s): R00.0 - Tachycardia, unspecified Status: Acute (9) Elevated brain natriuretic peptide (BNP) level: Code(s): R79.89 - Other specified abnormal findings of blood chemistry Status: Acute (10) Acute encephalopathy: Code(s): G93.40 - Encephalopathy, unspecified Status: Acute Plan 63-year-old female with a history of bilateral breast cancer 7 years prior on raloxifene, Crohn's disease, depression, tobacco abuse presents with weakness fatigue and shortness of breath. Admitted on 11/09/2023 for apparent metastasis and left pleural effusion. Left pleural effusion -status post thoracentesis healing 1 L of serosanguineous fluid on 11/11/2023 -on 11/11 her symptomatology is improved. Repeat chest x-ray two view in the morning. Advanced therapies with Cardiothoracic surgery is still a consideration. She remains on room air however. -pending cytology protein and LDH. PH is greater than 7.5. Uncertain if this is due to malignancy or congestive heart failure. Pending Gram stain and cultures. Nucleated cell count not performed due to clotting Acute encephalopathy, likely toxic low differential is wide -could be due to metastasis or UTI. Ammonia level normal. ABG level not drawn yesterday, requested nurse to make sure this done today. Possible pneumonia underlying the pleural effusion. Leukocytosis and her mental status is improving although procalcitonin high at 22. This will have to be monitor daily. -COVID RSV flu negative Sinus tachycardia -continue to monitor. Likely due to other ongoing issues. Starting metoprolol -chest CTA negative for PE Acute complicated UTI -blood cultures pending -urine culture negative -ceftriaxone started on 11/08. -monitor leukocytosis which is improving -procalcitonin high. Continue to monitor daily. Transaminitis/hyperbilirubinemia -this is relatively new possibly due to her liver mass. This needs to be monitored very closely. -ammonia level again within normal limits. GI consultation pending. -infectious hepatitis panel negative Metastatic disease/liver mass -status post liver biopsy on 11/11/2023. Pending pathology. Pending cytology of pleural fluid Congestive heart failure, diastolic, acutely decompensated -significant lower extremity edema started this admission. Unclear if related to metastasis or simply acutely compensation of underlying heart disease due to other stressors. Surface echocardiogram on 11/11 demonstrating normal EF at 60-65% with grade 1 diastolic dysfunction trace tricuspid valve regurg and mild pulmonary hypertension with a PA SP of 46 and trace pulmonic regurg
[2023-11-12] MEDS: METOPROLOL TARTRATE 12.5 MG TABLET PO ×2 (12:21→20:55)
[2023-11-12 12:43] LABS: Sodium Urine Random < 5 meq/L
[2023-11-12] MEDS: FUROSEMIDE INJ 40 MG/4 ML VIAL 20 MG IV PUSH (16:47)
[2023-11-12] MEDS: MELATONIN 3 MG TABLET PO (20:55)
[2023-11-13] VITALS (7 sets, daily range): BP systolic 134–144; BP diastolic 56–95; PULSE 102–120; RESP 16–18; TEMP 36.3–37.1; O2SAT 94–97
[2023-11-13] MEDS: CYCLOBENZAPRINE HCL 10 MG TABLET PO ×2 (01:41→16:28)
[2023-11-13 05:49] LABS: Basophils Percent Auto 0.2 % (0.2-1.2); Eosinophils Percent Auto 0.1 % (0-4.4); Hematocrit 36.5 % (37.0-47.0); Hemoglobin 11.9 g/dL (12.0-15.0); Immature Granulocyte Absolute 0.13 K/mm3 (0.00-0.031); Lymphocytes Percent Auto 12.9 % (18.3-44.2); Mean Corpuscular HGB Conc 32.6 g/dl (32-36); Mean Corpuscular Hemoglobin 30.8 pg (26-34); Mean Corpuscular Volume 94.6 fl (80-100); Mean Platelet Volume 10.3 fl (7.4-10.4); Monocytes Absolute Auto 0.9 K/mm3 (0.1-0.6); Monocytes Percent Auto 7.1 % (2.6-8.5); Neutrophils Absolute Auto 9.8 K/mm3 (1.3-6.7); Neutrophils Percent Auto 78.7 % (45.5-73.1); Nucleated Red Blood Cells Perc 0.2 % (0.0-0.2); Platelet Count Result 399 k/mm3 (150-375); Red Blood Count 3.86 M/mm3 (4.2-5.4); Red Cell Distribution Width 16.1 % (11.5-14.5); White Blood Count 12.4 K/mm3 (4.5-10.0)
[2023-11-13 06:03] LABS: Alanine Aminotransferase 117 U/L (6-35); Albumin Level 3.3 g/dL (3.5-5.1); Alkaline Phosphatase 401 U/L (38-126); Anion Gap 7 mmol/L (8-16); Bilirubin,Total 7.1 mg/dL (0.2-1.3); Blood Urea Nitrogen 11 mg/dL (7-17); Calcium 11.3 mg/dL (8.4-10.2); Carbon Dioxide 27 mmol/L (22-30); Chloride 94 mmol/L (98-107); Estimated CRCL calculation 94 ml/min; Estimated Glomerular Filt Rate > 60; Glucose 88 mg/dL (65-110); Magnesium 1.9 mg/dL (1.6-2.3); Potassium 3.6 mmol/L (3.4-5.0); Sodium 128 mmol/L (137-145)
[2023-11-13 06:19] LABS: Procalcitonin 21.4 ng/mL
[2023-11-13 06:20] LABS: Aspartate Amino Transferase 1002 U/L (14-36)
[2023-11-13] MEDS: ENOXAPARIN 40 MG/0.4 ML SYRINGE SUB-Q (10:06)
[2023-11-13] MEDS: FUROSEMIDE INJ 40 MG/4 ML VIAL 20 MG IV PUSH ×2 (10:06→17:55)
[2023-11-13] MEDS: PANTOPRAZOLE 40 MG TABLET PO (10:07)
[2023-11-13] MEDS: METOPROLOL TARTRATE 12.5 MG TABLET PO ×2 (10:07→20:37)
[2023-11-13] MEDS: MULTIVITAMINS THERAPEUTIC TAB (*BKC) 1 TABLET PO (10:07)
[2023-11-13] MEDS: VITAMIN B COMPLEX CAPSULE 1 CAP PO (10:07)
[2023-11-13] MEDS: FOLIC ACID 1 MG TABLET PO (10:07)
[2023-11-13] MEDS: RALOXIFENE HCL (*CHEMO) 60 MG TABLET PO (10:07)
--- NOTE | 2023-11-13 10:08 | WPDNEURCNPN ---
Assessment and Plan Assessment and plan (1) Acute encephalopathy: Code(s): G93.40 - Encephalopathy, unspecified Status: Acute (2) Urinary tract infection: Code(s): N39.0 - Urinary tract infection, site not specified Status: Acute (3) Elevated liver enzymes: Code(s): R74.8 - Abnormal levels of other serum enzymes Status: Acute (4) Metastatic disease: Qualifiers: Digestive structure secondary neoplasm location: metastatic to liver Code(s): C79.9 - Secondary malignant neoplasm of unspecified site Status: Acute Plan Maritza Valle is a 63 year old female with a history of breast cancer and Crohn's disease who initially presented due to generalized weakness and shortness of breath. Recently found to have liver and lung masses, concerning for lung cancer with metastatic disease. There have been concerns for altered mental status during this is admission is likely multifactorial with contributing factors being underlying infection (UTI/possibly PNA), electrolyte derangement (hyponatremia, hypercalcemia), and possibly hepatic encephalopathy. Hepatic encephalopathy can be seen with normal ammonia levels. - Recommend treating underlying infection, electrolyte abnormalities - Obtain MRI brain with and without contrast. CT head was negative for mass lesions, but MRI needed to evaluate for subtle brain mets. - If no improvement despite treating underlying illnesses and if MRI is unrevealing, and no improvement in mental status, consider lumbar puncture for evaluation of infectious vs paraneoplastic encephalitis Consult date: 11/13/23 Reason for consult: Altered mental status HPI: Maritza Valle is a 63 year old female with a history of breast cancer and Crohn's disease who initially presented due to generalized weakness and shortness of breath. Patient recently evaluated by PCP for mild transaminitis. She was ultimately found to have a liver mass as noted on ultrasound. CXR showed L pleural effusion. Abdominal MRI showed L lung mass and mediastaina/L hilar lymphadenopathy, moderate L pleural effusion, and innumerable liver masses concerning for metastatic disease. Due to her generalized weakness and breathing difficulties, she presented to [place] [facility]. During evaluation she was found to have a UTI for which she was started on Rocephin. She was also noted to have transaminitis with ALT/AST 07/1002, and hyponatremia (recently Na 128). Her ammonia level is normal. B12 is normal. TSH and folate levels not checked. CT head done on 11/09/23 was normal. There is also concern that maybe pneumonia is the cause of the pleural effusion. Procalcitonin levels have been elevated, with today being 22. Review of Systems Review of Systems: All systems reviewed & are unremarkable except as noted in HPI and below PMFSH Past Medical History Medical History Bilateral breast cancer Crohn's disease Depression Tobacco abuse Surgical History Surgical History History of bilateral breast implants History of bilateral mastectomy History of colonoscopy History of lumpectomy of both breasts Family History Family History Mother Family history of malignant neoplasm of breast in first degree relative Breast cancer Father Heart disease Aortobifemoral bypass graft thrombosis Sibling Lymphoma Kidney tumor Other Cerebrovascular accident Family history of coronary artery disease Hypertension Social History Social History (Updated 11/09/23 @ 21:51 by Ida Bojorquez PA-C) Social History: Surrogate medical decision maker: José Miguel Valle, spouse. Code status: Full code. Smoking packs per day: 0.5 Smoking cigarettes per day: 10.0 Years smoked: 50 Smoking pack-years: 25.00 Smoking status: Current every da
--- NOTE | 2023-11-13 11:09 | PM.IMPN ---
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 Code(s): C79.9 - Secondary malignant neoplasm of unspecified site Status: Acute (2) Urinary tract infection: Code(s): N39.0 - Urinary tract infection, site not specified Status: Acute (3) Transaminitis: Code(s): R74.01 - Elevation of levels of liver transaminase levels Status: Acute (4) Pleural effusion on left: Code(s): J90 - Pleural effusion, not elsewhere classified Status: Acute (5) Dehydration: Code(s): E86.0 - Dehydration Status: Acute (6) Liver cancer: Qualifiers: Liver malignancy type: unspecified liver malignancy Qualified Code(s): C22.9 - Malignant neoplasm of liver, not specified as primary or secondary Code(s): C22.9 - Malignant neoplasm of liver, not specified as primary or secondary Status: Acute (7) Lung cancer: Qualifiers: Laterality: left Lung location: upper lobe of lung Qualified Code(s): C34.12 - Malignant neoplasm of upper lobe, left bronchus or lung Code(s): C34.90 - Malignant neoplasm of unspecified part of unspecified bronchus or lung Status: Acute (8) Sinus tachycardia: Code(s): R00.0 - Tachycardia, unspecified Status: Acute (9) Elevated brain natriuretic peptide (BNP) level: Code(s): R79.89 - Other specified abnormal findings of blood chemistry Status: Acute (10) Acute encephalopathy: Code(s): G93.40 - Encephalopathy, unspecified Status: Acute Plan 63-year-old female with a history of bilateral breast cancer 7 years prior on raloxifene, Crohn's disease, depression, tobacco abuse presents with weakness fatigue and shortness of breath. Admitted on 11/09/2023 for apparent metastasis and left pleural effusion. Left pleural effusion -status post thoracentesis healing 1 L of serosanguineous fluid on 11/11/2023. Repeat chest x-ray stable. Patient believes her breathing is normal now. Consider advanced therapies with Cardiothoracic surgery if her symptomatology returns she is currently on room air. -pending cytology protein and LDH. PH is greater than 7.5. Uncertain if this is due to malignancy or congestive heart failure. Pleural fluid culture pending. Pleural fluid Gram stain negative. Nucleated cell count not performed due to clotting Acute encephalopathy, likely toxic although differential is wide -could be due to metastasis or UTI or hepatic encephalopathy. Ammonia level normal. PCO2 not elevated on ABG. Possible pneumonia underlying the pleural effusion. Leukocytosis and procalcitonin improving. -COVID RSV flu negative -continue antibiotics. Neurology consulted. MRI brain with without contrast pending. Sinus tachycardia -improving. Metoprolol started. Likely due in part to active issues -chest CTA negative for PE Acute complicated UTI -blood cultures pending although no growth to date -urine culture negative -ceftriaxone started on 11/08. -monitor leukocytosis which is improving -procalcitonin high but improving Transaminitis/hyperbilirubinemia -this is relatively new possibly due to her liver mass. This needs to be monitored very closely. -ammonia level again within normal limits. Appreciate GI consultation and recommendations -infectious hepatitis panel negative Metastatic disease/liver mass -status post liver biopsy on 11/11/2023. Pending pathology. Pending cytology of pleural fluid Congestive heart failure, diastolic, acutely decompensated -significant lower extremity edema started this admission. Unclear if related to metastasis or simply acutely compensation of underlying heart disease due to other stressors. Surface echocardiogram on 11/11 demonstrating normal EF at 60-65% with grade 1 diastolic dysfunction trace tricuspid valve regurg and mild pulmonary hypertension
--- NOTE | 2023-11-13 13:57 | PC.NURSE ---
On 11/13/23, the student, [Maritza Vital], provided care and completed [facility] documentation on this patient. I have reviewed the student's documentation and agree with the findings.
[2023-11-13] MEDS: LORazepam (*CRX) 0.5 MG TABLET PO (16:28)
--- NOTE | 2023-11-13 16:53 | WPDGIPROGNO ---
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 Code(s): C79.9 - Secondary malignant neoplasm of unspecified site Status: Acute Assessment and Plan: she had breast cancer now different lesions in recent CT scan pending path report oncology on board prognosis is guarded will follow as needed (2) Elevated liver enzymes: Code(s): R74.8 - Abnormal levels of other serum enzymes Status: Acute Assessment and Plan: this is most likely from liver lesions/metastasis hepatitis panel negative (3) Liver mass: Code(s): R16.0 - Hepatomegaly, not elsewhere classified Status: Acute (4) Acute encephalopathy: Code(s): G93.40 - Encephalopathy, unspecified Status: Acute Assessment and Plan: multifactorial (5) Urinary tract infection: Code(s): N39.0 - Urinary tract infection, site not specified Status: Acute (6) Pleural effusion, left: Code(s): J90 - Pleural effusion, not elsewhere classified Status: Acute Assessment and Plan: s/p thoracentesis (7) Crohn's disease: Qualifiers: Gastrointestinal tract location: unspecified location Digestive disease complication type: without complication Qualified Code(s): K50.90 - Crohn's disease, unspecified, without complications Code(s): K50.90 - Crohn's disease, unspecified, without complications Status: Acute Assessment and Plan: on outpatient treatment with stelara no acute changes Subjective Date/time seen: 11/13/23 16:53 Interval history: no changes, post liver bx and thoracentesis she is eating Review of Systems Review of Systems: All systems reviewed & are unremarkable except as noted in HPI and below Exam Const: General: comfortable and no acute distress Other: A&O x3. less confusion, does not understand complex ideas HENMT: Face/Nose/Sinus: Normal nares present Eyes: Pupils: Equal, round and reactive pupils present Neck: Neck: supple Resp: Effort & Inspection: normal respiratory effort Other: Diminished at left lower base Cardio: Rate: regular rate Rhythm: regular rhythm GI: GI Palp: Yes Soft to palpation and No Tenderness to palpation present (GI) Auscultation: normal bowel sounds Skin: General skin exam: no rashes or lesions noted Neuro: Speech: normal speech Extrem: General: no edema Objective Data Vital Signs Vital Signs: Vital Signs - 24 hr 11/12/23 20:55 11/12/23 21:05 11/13/23 02:33 Temperature 97.9 F 97.5 F L Pulse Rate 109 H 109 H 108 H Respiratory Rate 16 16 Blood Pressure 135/70 134/70 Pulse Oximetry 95 95 Oxygen Delivery 11/13/23 04:00 11/13/23 09:50 11/13/23 10:07 Temperature 97.4 F L 97.4 F L Pulse Rate 105 H 116 H 102 H Respiratory Rate 16 16 Blood Pressure 138/56 L 141/93 H Pulse Oximetry 94 97 Oxygen Delivery 11/13/23 10:00 11/13/23 14:00 Temperature 97.4 F L Pulse Rate 108 H Respiratory Rate 18 Blood Pressure 144/72 H Pulse Oximetry 96 Oxygen Delivery Room Air Intake/Output Intake/Output: Intake & Output 11/10/23 11/11/23 11/12/23 11/13/23 23:59 23:59 23:59 23:59 Intake Total 4060 410 1980 1580 Output Total 1000 1000 1025 800 Balance 3060 -590 955 780 Meds/Results Medications: Active Medications Generic Name Dose Route Start Last Admin Trade Name Freq PRN Reason Stop Dose Admin Cyclobenzaprine HCl 10 mg 11/10/23 16:51 11/13/23 16:28 Cyclobenzaprine Hcl 10 Mg Tablet PO 10 mg TID PRN Administration muscle spasm Enoxaparin Sodium 40 mg 11/11/23 13:35 11/13/23 10:06 Enoxaparin 40 Mg/0.4 Ml Syringe SUB-Q 40 mg DAILY ELI Administration Folic Acid 1 mg 11/11/23 09:00 11/13/23 10:07 Folic Acid 1 Mg Tablet PO 1 mg QAM ELI Administration Furosemide 20 mg 11/12/23 17:00 11/13/23
[2023-11-13] MEDS: MELATONIN 3 MG TABLET PO (20:37)
[2023-11-13] MEDS: OLANZapine DISPERTAB 5 MG PO (20:45)
--- NOTE | 2023-11-13 20:49 | PC.NURSE ---
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 REFUSING TO STAY IN BED.
--- NOTE | 2023-11-13 21:45 | PC.NURSE ---
2100 PT FOLLOWS SOME COMMANDS AND ANSWERS SOME QUESTIONS APPROPRIATELY. SLOW TO VERBALLY RESPOND AT TIMES.
[2023-11-14] VITALS (9 sets, daily range): BP systolic 98–154; BP diastolic 52–74; PULSE 99–117; RESP 17–18; TEMP 36.3–36.9; O2SAT 96–98
--- NOTE | 2023-11-14 | ECHO_ITS ---
Patient Info Name: Maritza Valle Age: 63 years : 1960 Gender: Female Ht: 63 in Wt: 171 lbs BSA: 1.88 m2 HR: 100 bpm BP: 98 / 53 mmHg Technical Quality: Fair Exam Date: 11/14/2023 11:39 AM Exam Location: Echo Lab Exam Room: [facility] Patient Status: Inpatient Admit Date: 11/09/2023 Staff Ordering Physician: Ermias Merrill MD [employer] Spider: Betsey Martinez RDCS Attending Provider: Denzel Alvarez MD Exam Type: CA echo limited w bubble study Study Info Indications - CVA Limited two-dimensional transthoracic echocardiogram is performed with agitated saline. Contrast/Agitated Saline Amount: 16.00 ml Administered By: Renuka Lima RDCS Existing IV Access: Yes IV Access Condition: patent with no signs of infiltration Summary 1. Limited study to perform bubble study. 2. Agitated saline injection with and without valsalva maneuver opacified right side cardiac chambers and had a few bubbles shunt to left side cardiac chambers suggestive of patent foramen ovale. Atrial Septum Agitated saline injection with and without valsalva maneuver opacified right side cardiac chambers and had a few bubbles shunt to left side cardiac chambers suggestive of patent foramen ovale. Limited study to perform bubble study. Suspected patent foramen ovale visualized by 2D and agitated saline imaging. Report Signatures
[2023-11-14 07:51] LABS: Basophils Absolute Auto 0.1 K/mm3 (0.0-0.1); Basophils Percent Auto 0.4 % (0.2-1.2); Eosinophils Percent Auto 0.1 % (0-4.4); Hemoglobin 11.7 g/dL (12.0-15.0); Immature Granulocyte Absolute 0.18 K/mm3 (0.00-0.031); Immature Granulocyte Percent A 1.1 % (0-0.5); Lymphocytes Absolute Auto 1.69 K/mm3 (0.9-3.2); Lymphocytes Percent Auto 10.7 % (18.3-44.2); Mean Corpuscular HGB Conc 32.5 g/dl (32-36); Mean Corpuscular Hemoglobin 30.6 pg (26-34); Mean Corpuscular Volume 94.2 fl (80-100); Mean Platelet Volume 10.3 fl (7.4-10.4); Monocytes Absolute Auto 1.1 K/mm3 (0.1-0.6); Monocytes Percent Auto 6.9 % (2.6-8.5); Neutrophils Absolute Auto 12.8 K/mm3 (1.3-6.7); Neutrophils Percent Auto 80.8 % (45.5-73.1); Platelet Count Result 433 k/mm3 (150-375); Red Blood Count 3.82 M/mm3 (4.2-5.4); Red Cell Distribution Width 16.6 % (11.5-14.5); White Blood Count 15.8 K/mm3 (4.5-10.0)
[2023-11-14 08:01] LABS: Alanine Aminotransferase 132 U/L (6-35); Albumin Level 3.3 g/dL (3.5-5.1); Alkaline Phosphatase 340 U/L (38-126); Anion Gap 8 mmol/L (8-16); Bilirubin,Total 7.2 mg/dL (0.2-1.3); Blood Urea Nitrogen 13 mg/dL (7-17); Carbon Dioxide 25 mmol/L (22-30); Chloride 93 mmol/L (98-107); Estimated CRCL calculation 147 ml/min; Estimated Glomerular Filt Rate > 60; Glucose 123 mg/dL (65-110); Magnesium 1.6 mg/dL (1.6-2.3); Potassium 3.6 mmol/L (3.4-5.0); Sodium 126 mmol/L (137-145)
--- NOTE | 2023-11-14 08:34 | PC.NURSE ---
Patient's family approached RN, Lyudmila Santiago, at 0830 requesting provider come to see patient stating He knows we're here, get him up here right now. Patient condition stable at this time. Notified provider, Dr. Merrill at 0832 and received response I will be there soon. Patient family in waiting room at this time 0837.
[2023-11-14 08:56] LABS: Aspartate Amino Transferase 1053 U/L (14-36); Procalcitonin 20.6 ng/mL
[2023-11-14] MEDS: VITAMIN B COMPLEX CAPSULE 1 CAP PO (09:35)
[2023-11-14] MEDS: MULTIVITAMINS THERAPEUTIC TAB (*BKC) 1 TABLET PO (09:35)
[2023-11-14] MEDS: METOPROLOL TARTRATE 12.5 MG TABLET PO ×2 (09:35→21:04)
[2023-11-14] MEDS: ENOXAPARIN 40 MG/0.4 ML SYRINGE SUB-Q (09:35)
[2023-11-14] MEDS: FUROSEMIDE INJ 40 MG/4 ML VIAL 20 MG IV PUSH ×2 (09:35→17:14)
[2023-11-14] MEDS: PANTOPRAZOLE 40 MG TABLET PO (09:36)
[2023-11-14] MEDS: RALOXIFENE HCL (*CHEMO) 60 MG TABLET PO (09:36)
[2023-11-14] MEDS: OLANZapine DISPERTAB 5 MG PO (09:36)
[2023-11-14] MEDS: FOLIC ACID 1 MG TABLET PO (09:36)
[2023-11-14 10:11] LABS: Ammonia 17 umol/L (9-30)
[2023-11-14] MEDS: SODIUM CHLORIDE 0.9% IV 1,000 ML 100 ML IV CONT (10:55)
[2023-11-14 11:22] LABS: Glucose Point of Care 175 mg/dl (65-105)
--- NOTE | 2023-11-14 12:05 | PM.IMPN ---
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 Code(s): C79.9 - Secondary malignant neoplasm of unspecified site Status: Acute Assessment and Plan: Awaiting pathology report (2) Urinary tract infection: Code(s): N39.0 - Urinary tract infection, site not specified Status: Acute Assessment and Plan: On Cefepime (3) Transaminitis: Code(s): R74.01 - Elevation of levels of liver transaminase levels Status: Acute (4) Pleural effusion on left: Code(s): J90 - Pleural effusion, not elsewhere classified Status: Acute Assessment and Plan: s/p thoracentesis (5) Dehydration: Code(s): E86.0 - Dehydration Status: Acute Assessment and Plan: On NS (6) Liver cancer: Qualifiers: Liver malignancy type: unspecified liver malignancy Qualified Code(s): C22.9 - Malignant neoplasm of liver, not specified as primary or secondary Code(s): C22.9 - Malignant neoplasm of liver, not specified as primary or secondary Status: Acute (7) Lung cancer: Qualifiers: Laterality: left Lung location: upper lobe of lung Qualified Code(s): C34.12 - Malignant neoplasm of upper lobe, left bronchus or lung Code(s): C34.90 - Malignant neoplasm of unspecified part of unspecified bronchus or lung Status: Acute (8) Sinus tachycardia: Code(s): R00.0 - Tachycardia, unspecified Status: Acute (9) Elevated brain natriuretic peptide (BNP) level: Code(s): R79.89 - Other specified abnormal findings of blood chemistry Status: Acute (10) Acute encephalopathy: Code(s): G93.40 - Encephalopathy, unspecified Status: Acute (11) Acute CVA (cerebrovascular accident): Code(s): I63.9 - Cerebral infarction, unspecified Status: Acute Assessment and Plan: ECHO: Summary ? 1. Limited study to perform bubble study. ? 2. Agitated saline injection with and without valsalva maneuver opacified right side cardiac chambers and had a few bubbles shunt to left side cardiac chambers suggestive of patent foramen ovale. Plan 63-year-old female with a history of bilateral breast cancer 7 years prior on raloxifene, Crohn's disease, depression, tobacco abuse presents with weakness fatigue and shortness of breath. Admitted on 11/09/2023 for apparent metastasis and left pleural effusion. Acute CVA Patent foramen ovale. 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 Repeat chest x-ray stable. Patient believes her breathing is normal now. Consider advanced therapies with Cardiothoracic surgery if her symptomatology returns she is currently on room air. -pending cytology protein and LDH. PH is greater than 7.5. Uncertain if this is due to malignancy or congestive heart failure. Pleural fluid culture pending. Pleural fluid Gram stain negative. Nucleated cell count not performed due to clotting Acute encephalopathy, likely toxic although differential is wide -could be due to metastasis or UTI or hepatic encephalopathy. Ammonia level normal. PCO2 not elevated on ABG. Possible pneumonia underlying the pleural effusion. Leukocytosis and procalcitonin improving. -COVID RSV flu negative -continue antibiotics. Neurology consulted. MRI brain with without contrast pending. 11/14/23: Switch to Cefepime Sinus tachycardia -improving. Metoprolol started. Likely due in part to active issues -chest CTA negative for PE Acute complicated UTI -blood cultures pending although no growth to date -urine culture negative -ceftriaxone started on 11/08. -monitor leukocytosis which is improving -procalcitonin high but improving Transaminitis/hyperbilirubinemia -this is relatively new possibly due to her liver mass.
--- NOTE | 2023-11-14 14:15 | PC.NURSE ---
On 11/14/23, the student, [Angi Aguilera], provided care and completed [facility] documentation on this patient. I have reviewed the student's documentation and agree with the findings.
--- NOTE | 2023-11-14 14:31 | PC.NURSE ---
On 11/14/23, the student, [Bere Kaiser], provided care and completed [facility] documentation on this patient. I have reviewed the student's documentation and agree with the findings.
--- NOTE | 2023-11-14 14:52 | PCSTNOTE ---
Please refer to the Bedside Swallow Evaluation in the EMR. Please note, silent aspiration cannot be ruled out at bedside.
[2023-11-14] MEDS: CEFEPIME 2 GM/NS 50 ML 2 GM/50 ML BAG IVPB ×2 (15:16→21:05)
[2023-11-14 16:30] LABS: Glucose Point of Care 116 mg/dl (65-105)
[2023-11-14 18:19] LABS: Procalcitonin 22.8 ng/mL
[2023-11-14 20:52] LABS: Osmolality, Urine 370 mOsm/kg (50-1200)
[2023-11-14] MEDS: MELATONIN 3 MG TABLET PO (21:05)
[2023-11-15] VITALS (9 sets, daily range): BP systolic 131–150; BP diastolic 69–82; PULSE 109–122; RESP 14–20; TEMP 36.4–36.9; O2SAT 92–100
[2023-11-15] MEDS: QUEtiapine FUMARATE 12.5 MG TABLET PO ×2 (01:16→02:21)
[2023-11-15] MEDS: CEFEPIME 2 GM/NS 50 ML 2 GM/50 ML BAG IVPB ×3 (05:08→21:24)
[2023-11-15 06:16] LABS: Basophils Percent Auto 0.2 % (0.2-1.2); Hematocrit 32.4 % (37.0-47.0); Hemoglobin 11.2 g/dL (12.0-15.0); Immature Granulocyte Absolute 0.34 K/mm3 (0.00-0.031); Immature Granulocyte Percent A 2.2 % (0-0.5); Lymphocytes Absolute Auto 1.42 K/mm3 (0.9-3.2); Mean Corpuscular HGB Conc 34.6 g/dl (32-36); Mean Corpuscular Hemoglobin 31.8 pg (26-34); Mean Platelet Volume 10.5 fl (7.4-10.4); Monocytes Absolute Auto 1.2 K/mm3 (0.1-0.6); Monocytes Percent Auto 7.3 % (2.6-8.5); Neutrophils Absolute Auto 12.9 K/mm3 (1.3-6.7); Neutrophils Percent Auto 81.3 % (45.5-73.1); Platelet Count Result 402 k/mm3 (150-375); Red Blood Count 3.52 M/mm3 (4.2-5.4); Red Cell Distribution Width 17.1 % (11.5-14.5); White Blood Count 15.8 K/mm3 (4.5-10.0)
[2023-11-15] MEDS: HALOPERIDOL LACTATE 5 MG/ML VIAL IM (06:29)
[2023-11-15 07:15] LABS: Alanine Aminotransferase 138 U/L (6-35); Albumin Level 3.1 g/dL (3.5-5.1); Alkaline Phosphatase 327 U/L (38-126); Anion Gap 8 mmol/L (8-16); Bilirubin,Total 7.3 mg/dL (0.2-1.3); Blood Urea Nitrogen 16 mg/dL (7-17); Calcium 11.1 mg/dL (8.4-10.2); Carbon Dioxide 25 mmol/L (22-30); Chloride 96 mmol/L (98-107); Estimated CRCL calculation 95 ml/min; Estimated Glomerular Filt Rate > 60; Glucose 88 mg/dL (65-110); Potassium 3.8 mmol/L (3.4-5.0); Sodium 129 mmol/L (137-145)
[2023-11-15 08:22] LABS: Glucose Point of Care 105 mg/dl (65-105)
[2023-11-15] MEDS: FUROSEMIDE INJ 40 MG/4 ML VIAL 20 MG IV PUSH ×2 (08:43→18:30)
[2023-11-15] MEDS: ENOXAPARIN 40 MG/0.4 ML SYRINGE SUB-Q (08:43)
[2023-11-15] MEDS: RALOXIFENE HCL (*CHEMO) 60 MG TABLET PO (08:44)
[2023-11-15] MEDS: FOLIC ACID 1 MG TABLET PO (08:44)
[2023-11-15] MEDS: VITAMIN B COMPLEX CAPSULE 1 CAP PO (08:44)
[2023-11-15] MEDS: PANTOPRAZOLE 40 MG TABLET PO (08:44)
[2023-11-15] MEDS: MULTIVITAMINS THERAPEUTIC TAB (*BKC) 1 TABLET PO (08:44)
[2023-11-15] MEDS: METOPROLOL TARTRATE 12.5 MG TABLET PO ×2 (08:48→21:24)
[2023-11-15 09:33] LABS: Aspartate Amino Transferase 1186 U/L (14-36)
--- NOTE | 2023-11-15 09:40 | PM.IMPN ---
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 Code(s): C79.9 - Secondary malignant neoplasm of unspecified site Status: Acute Assessment and Plan: Awaiting pathology report (2) Urinary tract infection: Code(s): N39.0 - Urinary tract infection, site not specified Status: Acute Assessment and Plan: On Cefepime (3) Transaminitis: Code(s): R74.01 - Elevation of levels of liver transaminase levels Status: Acute Assessment and Plan: Likely 2/2 Liver neoplastic process (4) Pleural effusion on left: Code(s): J90 - Pleural effusion, not elsewhere classified Status: Acute Assessment and Plan: s/p thoracentesis (5) Dehydration: Code(s): E86.0 - Dehydration Status: Acute Assessment and Plan: On NS (6) Liver cancer: Qualifiers: Liver malignancy type: unspecified liver malignancy Qualified Code(s): C22.9 - Malignant neoplasm of liver, not specified as primary or secondary Code(s): C22.9 - Malignant neoplasm of liver, not specified as primary or secondary Status: Acute (7) Lung cancer: Qualifiers: Laterality: left Lung location: upper lobe of lung Qualified Code(s): C34.12 - Malignant neoplasm of upper lobe, left bronchus or lung Code(s): C34.90 - Malignant neoplasm of unspecified part of unspecified bronchus or lung Status: Acute (8) Sinus tachycardia: Code(s): R00.0 - Tachycardia, unspecified Status: Acute (9) Elevated brain natriuretic peptide (BNP) level: Code(s): R79.89 - Other specified abnormal findings of blood chemistry Status: Acute (10) Acute encephalopathy: Code(s): G93.40 - Encephalopathy, unspecified Status: Acute (11) Acute CVA (cerebrovascular accident): Code(s): I63.9 - Cerebral infarction, unspecified Status: Acute Assessment and Plan: ECHO: Summary ? 1. Limited study to perform bubble study. ? 2. Agitated saline injection with and without valsalva maneuver opacified right side cardiac chambers and had a few bubbles shunt to left side cardiac chambers suggestive of patent foramen ovale. Plan 63-year-old female with a history of bilateral breast cancer 7 years prior on raloxifene, Crohn's disease, depression, tobacco abuse presents with weakness fatigue and shortness of breath. Admitted on 11/09/2023 for apparent metastasis and left pleural effusion. Acute CVA Patent foramen ovale. 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 Leucocytosis. Maybe 2/2 underlying neoplasm as opposed to infection. on Cefepime Left pleural effusion -status post thoracentesis healing 1 L of serosanguineous fluid on 11/11/2023. Repeat chest x-ray stable. Patient believes her breathing is normal now. Consider advanced therapies with Cardiothoracic surgery if her symptomatology returns she is currently on room air. -pending cytology protein and LDH. PH is greater than 7.5. Uncertain if this is due to malignancy or congestive heart failure. Pleural fluid culture pending. Pleural fluid Gram stain negative. Nucleated cell count not performed due to clotting Acute encephalopathy, likely toxic although differential is wide -could be due to metastasis or UTI or hepatic encephalopathy. Ammonia level normal. PCO2 not elevated on ABG. Possible pneumonia underlying the pleural effusion. Leukocytosis and procalcitonin improving. -COVID RSV flu negative -continue antibiotics. Neurology consulted. MRI brain with without contrast pending. 11/14/23: Switch to Cefepime Sinus tachycardia -improving. Metoprolol started. Likely due in part to active issues -chest CTA negative for PE Acute complicated UTI -blood cultures pending although no growth to date -urine culture negative -ceft
--- NOTE | 2023-11-15 10:19 | PCSTNOTE ---
Modified barium swallow study attempted at 10:00 am. Patient was not alert enough to participate, kept eyes closed. Not following commands. Physician and nursing notified.
--- NOTE | 2023-11-15 10:41 | PCOTNOTE ---
RN request that pt attempt therapy at later time due to not having any sleep for a couple of days.
[2023-11-15 11:12] LABS: Hemoglobin A1C 4.9 % (<5.7)
[2023-11-15 11:51] LABS: Cholesterol 168 mg/dL (0-200); HDL Direct 17 mg/dL; Triglycerides 197 mg/dL (<150)
[2023-11-15 11:56] LABS: Glucose Point of Care 126 mg/dl (65-105)
[2023-11-15 12:02] LABS: LDL Cholesterol Direct 119 mg/dL
[2023-11-15 13:04] LABS: LDH Pleural Fluid 1353 U/L; Total Protein Pleural Fluid 3.5 g/dL
[2023-11-15] MEDS: ASPIRIN 81 MG ENTERIC TABLET PO (15:15)
[2023-11-15] MEDS: ATORVASTATIN 40 MG TABLET 80 MG PO (15:15)
[2023-11-15] MEDS: CLOPIDOGREL BISULFATE 75 MG TABLET PO (15:15)
--- NOTE | 2023-11-15 15:56 | PCPTNOTE ---
Attempted therapy at this time however patient was unable to follow commands or answer questions. Updated nursing who states patient has not slept in 4 days. Will attempt at later time.
[2023-11-15] MEDS: MELATONIN 3 MG TABLET PO (21:24)
[2023-11-15] MEDS: OLANZapine DISPERTAB 5 MG PO (21:24)
[2023-11-16 03:30] VITALS: BP 143/80; PULSE 114; RESP 20; TEMP 37; O2SAT 91
[2023-11-16 05:45] LABS: Basophils Absolute Auto 0.1 K/mm3 (0.0-0.1); Basophils Percent Auto 0.5 % (0.2-1.2); Eosinophils Percent Auto 0.1 % (0-4.4); Hematocrit 34.8 % (37.0-47.0); Hemoglobin 11.5 g/dL (12.0-15.0); Immature Granulocyte Absolute 0.67 K/mm3 (0.00-0.031); Immature Granulocyte Percent A 3.8 % (0-0.5); Lymphocytes Absolute Auto 1.55 K/mm3 (0.9-3.2); Lymphocytes Percent Auto 8.8 % (18.3-44.2); Mean Corpuscular Hemoglobin 31.1 pg (26-34); Mean Corpuscular Volume 94.1 fl (80-100); Mean Platelet Volume 10.7 fl (7.4-10.4); Monocytes Absolute Auto 1.1 K/mm3 (0.1-0.6); Monocytes Percent Auto 6.3 % (2.6-8.5); Neutrophils Absolute Auto 14.1 K/mm3 (1.3-6.7); Neutrophils Percent Auto 80.5 % (45.5-73.1); Nucleated Red Blood Cells Perc 0.2 % (0.0-0.2); Platelet Count Result 403 k/mm3 (150-375); Red Cell Distribution Width 18.4 % (11.5-14.5); White Blood Count 17.6 K/mm3 (4.5-10.0)
[2023-11-16] MEDS: CEFEPIME 2 GM/NS 50 ML 2 GM/50 ML BAG IVPB ×3 (06:10→22:24)
[2023-11-16 07:32] LABS: Alanine Aminotransferase 162 U/L (6-35); Albumin Level 3.1 g/dL (3.5-5.1); Alkaline Phosphatase 320 U/L (38-126); Anion Gap 12 mmol/L (8-16); Bilirubin,Total 8.9 mg/dL (0.2-1.3); Blood Urea Nitrogen 26 mg/dL (7-17); Calcium 11.4 mg/dL (8.4-10.2); Carbon Dioxide 20 mmol/L (22-30); Chloride 99 mmol/L (98-107); Estimated CRCL calculation 70 ml/min; Estimated Glomerular Filt Rate > 60; Glucose 104 mg/dL (65-110); Sodium 131 mmol/L (137-145)
[2023-11-16 07:46] LABS: Aspartate Amino Transferase 1292 U/L (14-36)
--- NOTE | 2023-11-16 09:44 | PCSTNOTE ---
Per MD MBSS is to be postponed until tomorrow as patient is still not very responsive.
--- NOTE | 2023-11-16 10:21 | PCPTNOTE ---
RN states patient is not appropriate for therapy services this date.
--- NOTE | 2023-11-16 10:26 | PC.NURSE ---
Spoke with hospitalist, Dr. Merrill, whom requested to call Neurologist on-call, Dr. Welsh, as Neurology follows this patient.Dr. Welsh notified at 1025.
--- NOTE | 2023-11-16 10:31 | PCOTNOTE ---
Per RN, Pt is not appropriate for therapy treatment today. Will continue per poc duration/frequency when appropriate.
[2023-11-16 11:03] VITALS: PULSE 112
[2023-11-16] MEDS: VITAMIN B COMPLEX CAPSULE 1 CAP PO (11:03)
[2023-11-16] MEDS: METOPROLOL TARTRATE 12.5 MG TABLET PO ×2 (11:03→22:23)
[2023-11-16] MEDS: FOLIC ACID 1 MG TABLET PO (11:03)
[2023-11-16] MEDS: ASPIRIN 81 MG CHEWABLE TABLET PO (11:03)
[2023-11-16] MEDS: LANSOPRAZOLE ODT 30 MG TAB.RAP.DR PO (11:03)
[2023-11-16 11:05] VITALS: BP 117/56; PULSE 113; RESP 20; O2SAT 100
[2023-11-16] MEDS: ENOXAPARIN 40 MG/0.4 ML SYRINGE SUB-Q (11:05)
[2023-11-16] MEDS: RALOXIFENE HCL (*CHEMO) 60 MG TABLET PO (11:06)
[2023-11-16] MEDS: ATORVASTATIN 40 MG TABLET 80 MG PO (11:06)
[2023-11-16] MEDS: MULTIVITAMINS THERAPEUTIC TAB (*BKC) 1 TABLET PO (11:06)
[2023-11-16] MEDS: FUROSEMIDE INJ 40 MG/4 ML VIAL 20 MG IV PUSH ×2 (11:06→18:42)
[2023-11-16] MEDS: CLOPIDOGREL BISULFATE 75 MG TABLET PO (11:06)
--- NOTE | 2023-11-16 12:53 | PM.IMPN ---
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 Awaiting Oncology input. (2) Urinary tract infection: Code(s): N39.0 - Urinary tract infection, site not specified Status: Acute Assessment and Plan: On Cefepime (3) Transaminitis: Code(s): R74.01 - Elevation of levels of liver transaminase levels Status: Acute Assessment and Plan: Likely 2/2 Liver neoplastic process (4) Pleural effusion on left: Code(s): J90 - Pleural effusion, not elsewhere classified Status: Acute Assessment and Plan: s/p thoracentesis (5) Dehydration: Code(s): E86.0 - Dehydration Status: Acute Assessment and Plan: On NS (6) Liver cancer: Qualifiers: Liver malignancy type: unspecified liver malignancy Qualified Code(s): C22.9 - Malignant neoplasm of liver, not specified as primary or secondary Code(s): C22.9 - Malignant neoplasm of liver, not specified as primary or secondary Status: Acute Assessment and Plan: Probable Lung primary (7) Lung cancer: Qualifiers: Laterality: left Lung location: upper lobe of lung Qualified Code(s): C34.12 - Malignant neoplasm of upper lobe, left bronchus or lung Code(s): C34.90 - Malignant neoplasm of unspecified part of unspecified bronchus or lung Status: Acute Assessment and Plan: Pleural effusion, show Adenocarcinoma, lung as primary. (8) Sinus tachycardia: Code(s): R00.0 - Tachycardia, unspecified Status: Acute (9) Elevated brain natriuretic peptide (BNP) level: Code(s): R79.89 - Other specified abnormal findings of blood chemistry Status: Acute (10) Acute encephalopathy: Code(s): G93.40 - Encephalopathy, unspecified Status: Acute Assessment and Plan: 11/16/23: Awaiting neurology input; Methylprednisone; (11) Acute CVA (cerebrovascular accident): Code(s): I63.9 - Cerebral infarction, unspecified Status: Acute Assessment and Plan: ECHO: Summary ? 1. Limited study to perform bubble study. ? 2. Agitated saline injection with and without valsalva maneuver opacified right side cardiac chambers and had a few bubbles shunt to left side cardiac chambers suggestive of patent foramen ovale. 11/16/23: On Atorvastatin, Plavix, Aspirin Plan 63-year-old female with a history of bilateral breast cancer 7 years prior on raloxifene, Crohn's disease, depression, tobacco abuse presents with weakness fatigue and shortness of breath. Admitted on 11/09/2023 for apparent metastasis and left pleural effusion. Acute CVA Patent foramen ovale. 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 11/16/23: Leucocytosis. Maybe 2/2 underlying neoplasm as opposed to infection. on Cefepime Left pleural effusion -status post thoracentesis healing 1 L of serosanguineous fluid on 11/11/2023. Repeat chest x-ray stable. Patient believes her breathing is normal now. Consider advanced therapies with Cardiothoracic surgery if her symptomatology returns she is currently on room air. -pending cytology protein and LDH. PH is greater than 7.5. Uncertain if this is due to malignancy or congestive heart failure. Pleural fluid culture pending. Pleural fluid Gram stain negative. Nucleated cell count not performed due to clotting 11/16/23: Adenocarcinoma, Lung as probable primary Acute encephalopathy, likely toxic although differential is wide -could be due to metastasis or UTI or hepatic encephalopathy. Ammonia level normal. PCO2 not elevated on ABG. Possible pneumonia underlying the pleural effusion. Leukocytosis and procalc
--- NOTE | 2023-11-16 13:09 | WPDNEUROPN ---
Progress Note: A&P Assessment and Plan (1) Acute encephalopathy: Code(s): G93.40 - Encephalopathy, unspecified Status: Acute Plan neurologically she is unchanged her white blood cell count is slightly increased but treatment is being continued as such will obtain the EEG on Friday and also repeat CT scan on Friday if she continues to be more drowsy. Time Spent With Patient Time with patient: 15 - 25 minutes Subjective Date/time seen: 11/16/23 13:09 Interval history: 63 years old female is being seen again for the follow-up. She was initially seen by Dr. Rosario for acute encephalopathy in addition to the metastatic disease, and UTI and also history of breast cancer, Crohn's disease. Basic complaints for generalized weakness with difficulties in breathing and she was found to have the pulmonary and hepatic metastatic stress problem was attributed to the multiple comorbid condition and she is being treated for the underlying infection and the electrolyte imbalance. On today's visit her CBC shows WBC count 17.6 with hemoglobin 11.5 platelet count 403, on 11/10 her INR was 1.2 and on 11/15 her sodium was 131 with BUN 26, all her serology testing was negative her MRI on 11/12 revealed small punctate area the diffusion restriction in the left parietal white matter consistent with acute infection but again no mass effect and no bleed in addition she was found to have small chronic left cerebellar infarction as well, on 11/12 her chest x-ray had shown moderate size left pleural effusion and stable airspace opacities at left lung base likely combination of atelectasis and malignancy in her x-ray chest has been repeated today as well she continues to receive cefepime 2g IV piggyback q.8 hours, along with her other medications. She has had the echocardiogram as well which was somewhat limited there was some shunt from right to the left suggestive of patent foramen ovale Exam Narrative: on examination today she is arousable but somewhat somber follow the instruction extraocular movements are full with no nystagmus neck is supple heart regular lungs with rhonchi abdomen is soft and neurological is she is arousable follows instruction move the upper and lower extremities. nurse at the bedside who reported she is somewhat more drowsy over the last 24hours Objective Data Vital Signs Vital Signs: Vital Signs - 24 hr 11/15/23 14:55 11/15/23 17:01 11/15/23 19:44 Temperature 36.4 C 36.4 C 36.4 C Pulse Rate 110 H 116 H 122 H Respiratory Rate 20 14 16 Blood Pressure 141/69 H 138/81 132/70 Pulse Oximetry 95 100 96 Oxygen Delivery 11/15/23 21:24 11/15/23 20:00 11/15/23 23:35 Temperature 36.4 C Pulse Rate 110 H 110 H 109 H Respiratory Rate 16 18 Blood Pressure 137/82 Pulse Oximetry 96 92 Oxygen Delivery Room Air 11/16/23 03:30 11/16/23 11:03 11/16/23 11:05 Temperature 37.0 C Pulse Rate 114 H 112 H 113 H Respiratory Rate 20 20 Blood Pressure 143/80 H 117/56 L Pulse Oximetry 91 100 Oxygen Delivery Intake/Output Intake/Output: Intake & Output 11/13/23 11/14/23 11/15/23 11/16/23 23:59 23:59 23:59 23:59 Intake Total 1870 968 390 100 Output Total 800 1200 600 400 Balance 3897 -232 -210 -300 Meds/Results Medications: Active Medications Generic Name Dose Route Start Last Admin Trade Name Freq PRN Reason Stop Dose Admin Aspirin 81 mg 11/16/23 10:40 11/16/23 11:03 Aspirin 81 Mg Chewable Tablet PO 81 mg DAILY@0800 ELI Administration Atorvastatin Calcium 80 mg 11/15/23 09:05 11/16/23 11:06 Atorvastatin 40 Mg Tablet PO 80 mg DAILY ELI Administration Clopidogrel Bisulfate 75 mg 11/15/23 09:05 11/16/23 11:06 Clopidogrel Bisulfate 75 Mg Tablet PO 75 mg QAM ELI Administration Cyclobenzaprine HCl 10 mg 11/10/23 16:51 11/13/23 16:28 Cyclobenzaprine Hcl 10 Mg Tablet PO 10 mg TID PRN Administration muscle spasm Enoxaparin Sodium 40 mg 11/11/23
[2023-11-16 13:23] LABS: Fractional Inspired Oxygen 21 %; HCO3 VBG 23.7 mEq/l (24.0-30.0); PO2 VBG 46.8 mmHg (35.0-45.0)
[2023-11-16 13:28] LABS: pH VBG 7.437 (7.300-7.400)
[2023-11-16 15:14] VITALS: BP 100/76; PULSE 113; RESP 20; O2SAT 94
[2023-11-16] MEDS: methylPREDNISolone SOD SUCC 125 MG VIAL IV PUSH (18:42)
[2023-11-16 19:57] VITALS: BP 126/65; PULSE 115; RESP 24; TEMP 36.8; O2SAT 92
[2023-11-16 21:52] LABS: Glucose Point of Care 106 mg/dl (65-105)
[2023-11-16 22:23] VITALS: PULSE 115
[2023-11-16] MEDS: MELATONIN 3 MG TABLET PO (22:23)
[2023-11-17] VITALS (12 sets, daily range): BP systolic 92–134; BP diastolic 50–85; PULSE 100–115; RESP 20–22; TEMP 36.4–36.7; O2SAT 91–97
[2023-11-17] MEDS: SODIUM CHLOR 3% 15 ML NEB (RESPIRATORY THERAPY) 6 ML INHALATION (05:07)
[2023-11-17 05:08] LABS: Basophils Absolute Auto 0.1 K/mm3 (0.0-0.1); Basophils Percent Auto 0.4 % (0.2-1.2); Eosinophils Percent Auto 0.1 % (0-4.4); Hematocrit 34.8 % (37.0-47.0); Hemoglobin 11.5 g/dL (12.0-15.0); Immature Granulocyte Absolute 0.67 K/mm3 (0.00-0.031); Immature Granulocyte Percent A 4.2 % (0-0.5); Lymphocytes Absolute Auto 1.33 K/mm3 (0.9-3.2); Lymphocytes Percent Auto 8.3 % (18.3-44.2); Mean Corpuscular Volume 93.8 fl (80-100); Mean Platelet Volume 10.7 fl (7.4-10.4); Monocytes Absolute Auto 0.8 K/mm3 (0.1-0.6); Monocytes Percent Auto 4.9 % (2.6-8.5); Neutrophils Absolute Auto 13.2 K/mm3 (1.3-6.7); Neutrophils Percent Auto 82.1 % (45.5-73.1); Nucleated Red Blood Cells Perc 0.4 % (0.0-0.2); Platelet Count Result 416 k/mm3 (150-375); Red Blood Count 3.71 M/mm3 (4.2-5.4); Red Cell Distribution Width 19.2 % (11.5-14.5)
[2023-11-17 05:24] LABS: INR 1.7; Partial Thromboplastin Time 31.9 Seconds (22.3-36.8); Prothrombin Time 21.4 Seconds (11.1-14.7)
[2023-11-17 05:50] LABS: Alanine Aminotransferase 274 U/L (6-35); Albumin Level 3.2 g/dL (3.5-5.1); Alkaline Phosphatase 317 U/L (38-126); Anion Gap 16 mmol/L (8-16); Bilirubin,Total 8.7 mg/dL (0.2-1.3); Blood Urea Nitrogen 39 mg/dL (7-17); Calcium 11.2 mg/dL (8.4-10.2); Carbon Dioxide 18 mmol/L (22-30); Chloride 103 mmol/L (98-107); Estimated CRCL calculation 45 ml/min; Estimated Glomerular Filt Rate 50; Glucose 105 mg/dL (65-110); Sodium 137 mmol/L (137-145)
[2023-11-17 05:53] LABS: Aspartate Amino Transferase 2018 U/L (14-36)
[2023-11-17] MEDS: CEFEPIME 2 GM/NS 50 ML 2 GM/50 ML BAG IVPB ×3 (05:58→21:04)
[2023-11-17 07:19] LABS: Vitamin D 1,25 (OH)2 Total <8 pg/mL (18-72); Vitamin D2 1,25 (OH)2 <8 pg/mL; Vitamin D3 1,25 (OH)2 <8 pg/mL
[2023-11-17 07:31] LABS: Glucose Point of Care 109 mg/dl (65-105)
--- NOTE | 2023-11-17 09:31 | PCSTNOTE ---
Order for Modified Barium Swallow study has been discontinued this morning after being determined that patient is not appropriate today and for the past two days, three days total, secondary to health status. Dr. Ash notified of request to discharge order with the understanding that it can be re-ordered at any time in the future.
--- NOTE | 2023-11-17 10:07 | PM.IMPN ---
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 Awaiting Oncology input. (2) Urinary tract infection: Code(s): N39.0 - Urinary tract infection, site not specified Status: Acute Assessment and Plan: On Cefepime (3) Transaminitis: Code(s): R74.01 - Elevation of levels of liver transaminase levels Status: Acute Assessment and Plan: Likely 2/2 Liver neoplastic process (4) Pleural effusion on left: Code(s): J90 - Pleural effusion, not elsewhere classified Status: Acute Assessment and Plan: s/p thoracentesis (5) Dehydration: Code(s): E86.0 - Dehydration Status: Acute Assessment and Plan: On NS (6) Liver cancer: Qualifiers: Liver malignancy type: unspecified liver malignancy Qualified Code(s): C22.9 - Malignant neoplasm of liver, not specified as primary or secondary Code(s): C22.9 - Malignant neoplasm of liver, not specified as primary or secondary Status: Acute Assessment and Plan: Probable Lung primary (7) Lung cancer: Qualifiers: Laterality: left Lung location: upper lobe of lung Qualified Code(s): C34.12 - Malignant neoplasm of upper lobe, left bronchus or lung Code(s): C34.90 - Malignant neoplasm of unspecified part of unspecified bronchus or lung Status: Acute Assessment and Plan: Pleural effusion, show Adenocarcinoma, lung as primary. (8) Sinus tachycardia: Code(s): R00.0 - Tachycardia, unspecified Status: Acute (9) Elevated brain natriuretic peptide (BNP) level: Code(s): R79.89 - Other specified abnormal findings of blood chemistry Status: Acute (10) Acute encephalopathy: Code(s): G93.40 - Encephalopathy, unspecified Status: Acute Assessment and Plan: 11/16/23: Awaiting neurology input; Methylprednisone; (11) Acute CVA (cerebrovascular accident): Code(s): I63.9 - Cerebral infarction, unspecified Status: Acute Assessment and Plan: ECHO: Summary ? 1. Limited study to perform bubble study. ? 2. Agitated saline injection with and without valsalva maneuver opacified right side cardiac chambers and had a few bubbles shunt to left side cardiac chambers suggestive of patent foramen ovale. 11/16/23: On Atorvastatin, Plavix, Aspirin Plan 63-year-old female with a history of bilateral breast cancer 7 years prior on raloxifene, Crohn's disease, depression, tobacco abuse presents with weakness fatigue and shortness of breath. Admitted on 11/09/2023 for apparent metastasis and left pleural effusion. Acute CVA Patent foramen ovale. 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 11/16/23: on Plavix, ASA, Statin, Neurology on board; can't partake in PLANE TABLEMAN/PT/OT Leucocytosis. Maybe 2/2 underlying neoplasm as opposed to infection. on Cefepime Left pleural effusion -status post thoracentesis healing 1 L of serosanguineous fluid on 11/11/2023. Repeat chest x-ray stable. Patient believes her breathing is normal now. Consider advanced therapies with Cardiothoracic surgery if her symptomatology returns she is currently on room air. -pending cytology protein and LDH. PH is greater than 7.5. Uncertain if this is due to malignancy or congestive heart failure. Pleural fluid culture pending. Pleural fluid Gram stain negative. Nucleated cell count not performed due to clotting 11/16/23: Adenocarcinoma, Lung as probable primary 11/17/23: Holding plavix, will be tapped on 11/18 Acute encephalopathy, likely toxic although differential is wide -could be due to metastasis or UTI or hepatic encephalopathy. Ammonia
--- NOTE | 2023-11-17 10:24 | PCPTNOTE ---
The patient treatment was not able to be completed on 11/17/2023 due to patient not appropriate for therapy. Per RN patient is not responsive and not doing well. Will plan to continue treatment per plan of care.
[2023-11-17 11:02] LABS: Albumin Pleural Fluid 1.9 g/dL
[2023-11-17 11:13] LABS: Glucose Point of Care 97 mg/dl (65-105)
[2023-11-17] MEDS: DEXTROSE 5%/0.9% SOD CHL 1,000 ML 75 ML IV CONT (11:13)
--- NOTE | 2023-11-17 12:05 | PCNWS ---
Weekly nutritional screen. Hospitalist has spoken with father, brother and about poor prognosis and outcomes. Hospice referral. At this time diet order is appropriate. No nutritional needs at this time.
--- NOTE | 2023-11-17 13:42 | WPDNEUROPN ---
Subjective Date/time seen: 11/17/23 13:42 Interval history: ST 3 years old lady with ongoing diagnosis of encephalopathy in addition to metastatic disease with underlying carcinoma of the breast, gradually declining in the mental status her most recent WBCs 38510 on 11/16 with hemoglobin 11.5 and platelet count of 416, chest x-ray revealed on 11/15 moderate-sized left pleural effusion with atelectasis and pneumonia at the medial left mid to left lower lung zone with significant increase. An MRI was done on 11/12 which revealed only punctate areas of diffusion restriction in the left parietal white matter consistent with acute infarct but no acute bleed or chronic hematoma, is gradually declining to the point that she is not sitting up, not ambulating, occasionally spontaneously moving her upper and lower extremities, and all also no response to the verbal stimuli, nurses getting in touch with the oncologists other medications are still being continued as such Objective Data Vital Signs Vital Signs: Vital Signs - 24 hr 11/16/23 15:14 11/16/23 19:57 11/16/23 22:23 Temperature 36.8 C Pulse Rate 113 H 115 H 115 H Respiratory Rate 20 24 H Blood Pressure 100/76 126/65 Pulse Oximetry 94 92 Oxygen Delivery 11/17/23 00:00 11/16/23 22:10 11/17/23 05:01 Temperature 36.7 C 36.6 C Pulse Rate 107 H 112 H Respiratory Rate 20 22 H Blood Pressure 107/68 134/85 Pulse Oximetry 95 92 Oxygen Delivery Room Air 11/17/23 05:12 11/17/23 05:09 11/17/23 05:17 Temperature Pulse Rate 112 H 115 H Respiratory Rate Blood Pressure Pulse Oximetry 92 Oxygen Delivery Room Air 11/17/23 08:30 11/17/23 12:00 Temperature 36.5 C 36.6 C Pulse Rate 115 H 110 H Respiratory Rate 22 H 22 H Blood Pressure 123/65 110/56 L Pulse Oximetry 91 91 Oxygen Delivery Intake/Output Intake/Output: Intake & Output 11/14/23 11/15/23 11/16/23 11/17/23 23:59 23:59 23:59 23:59 Intake Total 968 390 200 50 Output Total 1200 600 600 Balance -845 -210 400 50 Meds/Results Medications: Active Medications Generic Name Dose Route Start Last Admin Trade Name Freq PRN Reason Stop Dose Admin Aspirin 81 mg 11/16/23 10:40 11/17/23 10:50 Aspirin 81 Mg Chewable Tablet PO Not Given DAILY@0800 [facility] Atorvastatin Calcium 80 mg 11/15/23 09:05 11/17/23 10:50 Atorvastatin 40 Mg Tablet PO Not Given DAILY [facility] Clopidogrel Bisulfate 75 mg 11/15/23 09:05 11/17/23 10:35 Clopidogrel Bisulfate 75 Mg Tablet PO Not Given QAM [facility] Cyclobenzaprine HCl 10 mg 11/10/23 16:51 11/13/23 16:28 Cyclobenzaprine Hcl 10 Mg Tablet PO 10 mg TID PRN Administration muscle spasm Enoxaparin Sodium 40 mg 11/11/23 13:35 11/17/23 10:35 Enoxaparin 40 Mg/0.4 Ml Syringe SUB-Q Not Given DAILY [facility] Folic Acid 1 mg 11/11/23 09:00 11/17/23 10:50 Folic Acid 1 Mg Tablet PO Not Given QAM [facility] Furosemide 20 mg 11/12/23 17:00 11/17/23 10:50 Furosemide Inj 40 Mg/4 Ml Vial IV PUSH Not Given BID [facility] Cefepime HCl 2 gm in 50 mls @ 100 mls/hr 11/14/23 12:00 11/17/23 06:28 Maxipime 2 Gm/Ns 50 Ml IVPB Infused Q8HR [facility] Infusion Dextrose/Sodium Chloride 1,000 mls @ 75 mls/hr 11/17/23 10:50 11/17/23 11:13 Dextrose 5% Sodium Chloride 0.9% IV CONT 75 mls/hr .[id number] [facility] Administration Lansoprazole 30 mg 11/16/23 10:45 11/17/23 06:07 Lansoprazole Odt 30 Mg Tab.Rap.Dr PO Not Given DAILY@0630 [facility] Melatonin 3 mg 11/12/23 21:00 11/16/23 22:23 Melatonin 3 Mg Tablet PO 3 mg HS [facility] Administration Metoprolol Tartrate 12.5 mg 11/12/23 11:50 11/17/23 10:50 Metoprolol Tartrate 12.5 Mg Tablet PO Not Given Q12HR [facility] Multivitamins Therapeutic 1 tablet 11/11/23 09:00 11/17/23 10:50 Multivitamins Therapeutic Tab (*Bkc) PO Not Given DAILY [facility] Olanzapine 5 mg 11/15/23 21:15 03/16/24 21:24 Olanzapine Dispertab 5 Mg PO 5 mg Q24H PRN Administra
--- NOTE | 2023-11-17 14:10 | PCOTNOTE ---
Patient out of the room at this time. Patient is down having a brain MRI. Per RN, Patient has a decline in awareness/lethargy and will not be able to participate in services.
--- NOTE | 2023-11-17 16:25 | WPDONCPN ---
Progress Note: A/P (1) Metastatic disease Qualifiers: Digestive structure secondary neoplasm location: metastatic to liver Code(s): C79.9 - Secondary malignant neoplasm of unspecified site Status: Acute (2) Liver mass Code(s): R16.0 - Hepatomegaly, not elsewhere classified Status: Acute - Additional Plan Attending note Metastatic lung cancer s/p liver biopsy. Case discussed with today. Recommended hospice care given recent quick decline. Pt. is DNR. Will sign off. Carlos Correia MD - Time Spent With Patient Total time spent is greater than 50% in coordination of care (as documented) at patient's floor/unit and/or counseling patient: 25 - 35 minutes Subjective Interval history: Metastatic lung cancer Review of Systems - Review of Systems Patient unable to respond, she is in some discomfort with laboured breathing. Exam Vital signs: Temp Pulse Resp BP Pulse Ox O2 Del Method O2 Flow Rate 36.4 C 107 H 20 106/58 L 97 Nasal Cannula 2 11/17/23 15:56 11/17/23 15:56 11/17/23 15:56 11/17/23 15:56 11/17/23 15:56 11/17/23 15:49 11/17/23 15:49 Narrative: Lungs, CTA bilaterally CV- tachycardic Abd-soft NT ND Ext-No edema PN: Objective Data - Labs CBC & Chem 7: 11/17/23 04:40 11/17/23 04:40 Labs: Laboratory Results - last 24 hr 11/11/23 11/13/23 11/16/23 10:59 05:37 13:18 WBC RBC Hgb Hct MCV MCH MCHC RDW Plt Count MPV Immature Gran % (Auto) Neut % (Auto) Lymph % (Auto) [place] % (Auto) Eos % (Auto) Baso % (Auto) Lymph # (Auto) [place] # (Auto) Eos # (Auto) Baso # (Auto) Abs Immat Gran (auto) Absolute Neuts (auto) Absolute Nucleated RBC Nucleated RBC % PT INR APTT O2 Delivery Device Not Reportable O2 Liters/Min Not Reportable Sodium Potassium Chloride Carbon Dioxide Anion Gap BUN Creatinine Estim Creat Clear Calc Estimated GFR Glucose POC Capillary Glucose Calcium Total Bilirubin AST ALT Alkaline Phosphatase Total Protein Albumin Vit D 1,25-Dihyd Total <8 L 1,25 Dihydroxy Vit D2 <8 1,25 Dihydroxy Vit D3 <8 Pleural Albumin 1.9 11/16/23 11/17/23 11/17/23 21:41 04:40 07:29 WBC 16.0 H RBC 3.71 L Hgb 11.5 L Hct 34.8 L MCV 93.8 MCH 31.0 MCHC 33.0 RDW 19.2 H Plt Count 416 H MPV 10.7 H Immature Gran % (Auto) 4.2 H Neut % (Auto) 82.1 H Lymph % (Auto) 8.3 L [place] % (Auto) 4.9 Eos % (Auto) 0.1 Baso % (Auto) 0.4 Lymph # (Auto) 1.33 [place] # (Auto) 0.8 H Eos # (Auto) 0.0 Baso # (Auto) 0.1 Abs Immat Gran (auto) 0.67 H Absolute Neuts (auto) 13.2 H Absolute Nucleated RBC 0.070 H Nucleated RBC % 0.4 H PT 21.4 H D INR 1.7 APTT 31.9 O2 Delivery Device O2 Liters/Min Sodium 137 Potassium 5.0 Chloride 103 Carbon Dioxide 18 L Anion Gap 16 BUN 39 H D Creatinine 1.10 H Estim Creat Clear Calc 45 Estimated GFR 50 L Glucose 105 POC Capillary Glucose 106 H 109 H Calcium 11.2 H Total Bilirubin 8.7 H AST 2018 H ALT 274 H Alkaline Phosphatase 317 H Total Protein 6.0 L Albumin 3.2 L Vit D 1,25-Dihyd Total 1,25 Dihydroxy Vit D2 1,25 Dihydroxy Vit D3 Pleural Albumin 11/17/23 11:10 WBC RBC Hgb Hct MCV MCH MCHC RDW Plt Count MPV Immature Gran % (Auto) Neut % (Auto) Lymph % (Auto) [place] % (Auto) Eos % (Auto) Baso % (Auto) Lymph # (Auto) [place] # (Auto) Eos # (Auto) Baso # (Auto) Abs Immat Gran (auto) Absolute Neuts (auto) Absolute Nucleated RBC Nucleated RBC % PT INR APTT O2 Delivery Device O2 Liters/Min Sodium Potassium Chloride Carbon Dioxide Anion Gap BUN Creatinine Estim Creat Clear Calc Estimated GFR Glucose POC Capillary Glucose 97 Calcium Total Bilirubin
[2023-11-17 16:27] LABS: Glucose Point of Care 101 mg/dl (65-105)
[2023-11-17] MEDS: HYDROmorphone HCL INJ (*CRX) 1 MG/ML SYR 0.5 MG IV PUSH ×2 (17:04→23:49)
[2023-11-17] MEDS: FUROSEMIDE INJ 40 MG/4 ML VIAL 20 MG IV PUSH (17:32)
[2023-11-17 19:18] LABS: Ammonia 28 umol/L (9-30)
[2023-11-17 23:23] LABS: Glucose Point of Care 131 mg/dl (65-105)
[2023-11-18] VITALS: BP 91/53; PULSE 95; RESP 18; TEMP 36.6; O2SAT 94
[2023-11-18] MEDS: DEXTROSE 5%/0.9% SOD CHL 1,000 ML 75 ML IV CONT (02:57)
[2023-11-18 04:09] VITALS: BP 70/45; PULSE 96; RESP 16; TEMP 36.4; O2SAT 93
--- NOTE | 2023-11-18 04:23 | PC.NURSE ---
called and left message for patients . informed of deterioration of status, low bp, decreased loc. await call back
[2023-11-18] MEDS: CEFEPIME 2 GM/NS 50 ML 2 GM/50 ML BAG IVPB (05:01)
--- NOTE | 2023-11-18 05:12 | PCRCNOTE ---
sodium chloride not given for sputum induction. Per nurse, patient has had a significant decline overnight. Family member at bedside
[2023-11-18 08:43] LABS: Glucose Point of Care 120 mg/dl (65-105)
--- NOTE | 2023-11-18 10:45 | PM.DDS ---
Discharge Summary Date and Time Date of : 11/18/23 Time of : 08:58 Provider Pronounced By: Ermias Merrill MD Probable Cause of Probable Cause of : Metastatic Adenocarcinoma of the Lung Summary Hospital Course: Chief Complaint: Fatigue, shortness of breath, weakness. Narrative: This is a 63-year-old female smoker with history of bilateral breast cancer about 7 years ago and Crohn's disease who presented to the emergency department accompanied by her for evaluation of weakness, fatigue, and shortness of breath. The patient provides the following history and her provides additional information, with the patient's permission. She had a routine appointment with her doctor at the beginning of the year and was found to have mildly elevated LFTs. A couple of weeks thereafter she was seen for evaluation of a several-day history of poor appetite, nausea, vomiting, dizziness, and ?feeling off.? She started having pain in the left side of her back not long thereafter. Abdominal ultrasound showed a 7 cm mass of the left hepatic lobe concerning for metastatic disease and a chest x-ray showed a moderate sized left pleural effusion. Abdominal MRI showed a left lung mass with mediastinal and left hilar lymphadenopathy, moderate size left pleural effusion with nodular pleural thickening, and innumerable liver masses consistent with metastatic disease. She was referred to Oncology and has an appoint with Dr. Correia on Friday. insisted that she come to the emergency department today as she has been going downhill quickly over the past 1 week. She is barely getting up from the bed or couch and reports that she is very weak and has a shuffling gait. She complains of pressure-like discomfort throughout her entire mid to upper abdomen and has had minimal oral intake. She continues to have pain in the left side of her back which is worse with deep inspiration. She is getting increasingly short of breath with lesser and lesser exertion. She denies fever, chills, sweats, headache, visual changes, facial droop, focal weakness, paresthesias, exertional chest pain, productive cough, vomiting, diarrhea, dysuria, pruritus, and edema. In the ED: She was afebrile on arrival and has been in a sinus tachycardia with rates in the low 100s to 120s. Respiratory rates have been in the mid to upper 20s and she is currently on 2 L nasal cannula with an SpO2 in the upper 90s. Labs were significant for WBC count of 13.4, INR 1.2, PT 15.7, PTT 57.8, sodium 127, chloride 91, BUN 10, creatinine 0.60, calcium 11.8, total bilirubin 5.6, AST 888, ALT 120, alkaline phosphatase 498, proBNP 1680, troponin less than 0.012. She tested negative for influenza, RSV, and COVID. Brain CT was negative. Chest x-ray shows prominent left pleural effusion and compressive atelectasis. V/Q scan was intermediate probability for pulmonary embolism. CT of the abdomen and pelvis showed liver masses, mediastinal left hilar lymphadenopathy, and moderate size left pleural effusion with nodular pleural thickening consistent with metastatic disease and a fracture of the right 11th rib. She was started on a heparin drip for possible pulmonary embolism; she will need pretreatment for contrast allergy (hives) for CTA of the chest tomorrow. She is being admitted in this setting for further evaluation and oncology consultation Admitted 11/09/23 , 11/18/23 8:58AM Plan 63-year-old female with a history of bilateral breast cancer 7 years prior on raloxifene, Crohn's disease, depression, tobacco abuse presents with weakness fatigue and shortness of breath.? Admitted on 11/09/2023 for apparent metastasis and left pleural effusion. Metastatic Lung Ca, to the liver Oncology: Metastatic lung cancer s/p liver biopsy. Case discussed with today. Recommended hospice care given recent quick decline. Pt. is DNR. Will sign off. Acute CVA Patent foramen ovale. Neurol
--- NOTE | 2023-11-18 12:26 | PC.NURSE ---
Sepsis bullseye notification seen by RN. rounded on patient this AM, patient during rounds at 8:58AM.
--- NOTE | 2023-11-18 12:34 | PC.NURSE ---
Patient at 8:58AM prior to physical assessment.
[2023-11-26 17:38] LABS: Parathyroid Hormone Related Pr 18 pg/mL (11-20)
== END 2023-11-18 08:58 | disposition expired | DRG 435 ==
LOC: ANHED 18:40 → ANHIMU 19:39 → ANH2MED 11-10 22:09
PROVIDERS: Emergency Medicine; General Practice; Internal Medicine; Physician Assistant; Student in an Organized Health Care Education/Training Program; Admitting Provider Internal Medicine; Emergency Provider Nurse Practitioner Family; PCP Family Medicine; Visit Provider Internal Medicine
DX: C78.7 Secondary malignant neoplasm of liver and intrahepatic bile duct (principal); I50.31 Acute diastolic (congestive) heart failure; J18.9 Pneumonia, unspecified organism; I63.9 Cerebral infarction, unspecified; C34.90 Malignant neoplasm of unspecified part of unspecified bronchus or lung; C79.51 Secondary malignant neoplasm of bone; N39.0 Urinary tract infection, site not specified; K50.90 Crohn's disease, unspecified, without complications; G93.49 Other encephalopathy; E87.1 Hypo-osmolality and hyponatremia; J91.0 Malignant pleural effusion; Q21.12 Patent foramen ovale; R16.0 Hepatomegaly, not elsewhere classified; Z66 Do not resuscitate; F17.210 Nicotine dependence, cigarettes, uncomplicated; R09.02 Hypoxemia; K76.82 Hepatic encephalopathy; E86.0 Dehydration; R74.01 Elevation of levels of liver transaminase levels; K21.9 Gastro-esophageal reflux disease without esophagitis; R25.2 Cramp and spasm; E83.52 Hypercalcemia; F32.A Depression, unspecified; R00.0 Tachycardia, unspecified; Z85.3 Personal history of malignant neoplasm of breast
CPT/HCPCS: 32555; 36415; 36600; 47000; 70450; 70553; 71045; 71046; 71275; 74176; 76942; 78582; 80048; 80053; 80061; 80074; 81001; 82042; 82140; 82375; 82550; 82607; 82652; 82803; 82805; 82948; 83036; 83050; 83519; 83615; 83690; 83735; 83880; 83935; 83970; 83986; 84145; 84157; 84300; 84443; 84484; 85025; 85027; 85055; 85610; 85730; 87040; 87086; 87205; 87637; 88108; 88184; 88305; 88307; 88342; 89051; 92610; 92611; 93005; 93306; 93308; 94640; 96365; 96375; 96376; 97161; 97165; 97530; 97535; 99285; A9270; A9540; A9558; A9577; J0692; J0696; J1170; J1200; J1630; J1644; J1650; J1940; J2405; J2930; J3010; J7030; J7042; J7512; Q9967